=== PATIENT | male | born 1960 | race Two or more races ===

== ENCOUNTER 2024-07-24 09:36 | Outpatient (REF) | payer MEDICARE, SELFPAY | END 2024-07-24 09:37 | disposition home or self-care (01) | LOC: HO.HOSX 09:36 | PROVIDERS: PCP Nurse Practitioner Family; Visit Provider Physician Assistant | DX: M48.061 Spinal stenosis, lumbar region without neurogenic claudication (principal); M54.16 Radiculopathy, lumbar region | CPT/HCPCS: 72110; 99202 ==

== ENCOUNTER 2024-07-24 09:36 | Outpatient (AMB) | payer MEDICARE, MEDICAID, SELFPAY ==
--- NOTE | 2024-07-24 10:11 | A.SPINEOV_ITS ---
Intake Visit Reasons: Back & growing pain Intake Note: Mr. Oliver is here today c/o low back pain difficulty walking. Research Subject Required: No Assessment & Plan Assessment & Plan (1) Lumbar radiculopathy: Code(s): M54.16 - Radiculopathy, lumbar region Category: Medical Plan Dear PO Medel, Thank you for referring Tereso to our office today. He is a pleasant 63-year-old male who comes in today with a chief complaint of low back pain, difficulty with ambulation, and shooting pain into his right groin. He reports this has been ongoing since 2008 in his waxed and waned over the years as he attempted to deal treat it conservatively. His pain is now to the point where he feels he is severely restricted in his activities of daily living. He reports that he is unable to ambulate more than about 20-30 feet without experiencing severe shooting pain into his right groin. In addition to this he feels extremely tired after ambulating this distance and needs to sit down and rest in order to alleviate his pain. He reports that laying flat on his stomach helps to alleviate his symptoms. He states that ambulating exacerbates his symptoms. He states he had a cervical spine fusion roughly 1 year ago completed by Dr. Avila at [facility]. He does feel his upper extremity symptoms were treated successfully as a result of the surgery. He has tried physical therapy multiple times and found he always is unable to completed due to the increase in pain. He was attempting cortisone injections at [facility], reporting he only obtained fleeting relief. He is now to the point where he needs to take tramadol intermittently, and has exhausted [id number]-ekbkwol medications. When asked what his worst symptom is he says it is the shooting pain into his right groin and the lack of ability to walk. PMH: Tobacco use disorder, hyperlipidemia, anxiety, depression, vitamin-D deficiency, erectile dysfunction, COPD, MINNA, malignant neoplasm of prostate with resection, diverticulosis, prediabetes (last A1C 2018 was 6.0). Social hx: Patient smokes 1/2 pack per day, denies any substance use. Medications: Aspirin, atorvastatin, cholecalciferol, cyclobenzaprine, lidocaine, metformin, naproxen, omeprazole, MiraLax, senna, Viagra, albuterol, Flomax. Allergies: No known allergies. Physical exam: Tereso has what I would call 4/5 strength with bilateral knee extension, knee flexion, and hip flexion. These findings are predominantly pain limited. The rest of his upper and lower extremity strength is 5/5. He rises from a seated position with quite a bit of difficulty, and laid on his stomach for the duration of this encounter aside from when I asked him to sit upright for his examination. He denies any sensational issues. (-) Beltre's, (-) clonus, (-) bilateral straight leg raise. Imaging review: MRI of the lumbar spine completed at [place] on 05/30/2024 shows posterior disc bulging at L3-4 with moderate central canal and severe bilateral foraminal stenosis, worse on the left. There is again posterior disc bulging and severe bilateral foraminal stenosis at L4-5. There is also severe degenerative disc disease with loss of disc height at L5-S1 with a right-sided paracentral posterior disc bulge causing moderate bilateral foraminal stenosis at this level. Impression: Tereso is a pleasant 63-year-old male who comes in today with a chief complaint of low back pain, shooting pain into his right groin, and difficulties with ambulation. He reports that he has had these issues since 2008, and they have slowly worsened to the point where he is essentially unable to complete basic activities of daily living. He has attempted several forms of conservative treatment without significant symptom relief. He is now to the point where he feels something must be done in order to relieve his shooting pain and difficulties with ambulation. I believe he would be a good candidate for a lumbar decompression at L3-4, L4-5. It does not sound like the L5-S1 segment is very symptomatic as he is having no posterior radiculopathy, and feels his back pain is of lesser importance as his ambulation and radiculopathy at this time. Given that he does report significant symptom relief from lying flat on his stomach, therefore I would like to send the patient for a set of dynamic lumbar x-rays to ensure there is no instability. I will review this case with Dr. Christiansen later this week and call/update the patient thereafter. Thank you for allowing us to care for your patient. The total time spent with this visit with this patient was 45 minutes reviewing history, physical exam, MRI imaging review, and implementation of treatment plan or further diagnostic testing. Joey Christiansen MD,PhD [facility] Orders: Orders XR lumbar spine 4V min Today M48.061 - Spinal stenosis, lumbar region without neurogenic claudication Coding Level of Care Code New Pt Level 4 (51398) Diagnoses Lumbar radiculopathy M54.16
== END 2024-07-24 11:51 | disposition home or self-care (01) ==
PROVIDERS: PCP Nurse Practitioner Family; Referring Provider Nurse Practitioner Family; Visit Provider Physician Assistant
DX: M54.16 Radiculopathy, lumbar region (principal)
CPT/HCPCS: 99204

== ENCOUNTER 2025-01-12 10:52 | Outpatient (AMB) | payer MEDICARE, MEDICAID, SELFPAY ==
--- NOTE | 2025-01-12 11:53 | A.SPINEOV_ITS ---
Intake Visit Reasons: Discussed surgery 07/20 Intake Note: Mr. Oliver is here today to Discuss Surgery Financial Coordinator Required: No Assessment & Plan Assessment & Plan (1) Lumbar stenosis: Code(s): M48.061 - Spinal stenosis, lumbar region without neurogenic claudication Category: Medical Plan Dear colleague, On 01/12/2025, I saw Tereso Oliver. It main complaint today is acute left back pain that started 2 weeks ago after lifting. He denies significant pain radiating down his legs. He does feel a cold sensation in his legs when he walks. On exam, he is in agony when he gets up from the chair. Straight leg raise is negative. He wears a lumbar brace. His MRI shows spinal stenosis L3-4 and L4-5 but it is clinical presentation is not indicative of neurogenic claudication. Therefore I have not offered him any form of surgery. I advised him to call my office if the left-sided back pain d oes not resolve in a few weeks to schedule a new MRI. I spent 15 minutes in his consult for history physical and discussing plan of care. Eber Christiansen MD, PhD [facility] Trained Neurosurgeon Director, [facility] Coding Level of Care Code Est Pt Level 2 (19888) Diagnoses Lumbar stenosis M48.061
--- OUTSIDE RECORDS SUMMARY | 2025-01-12 11:58 | XMS_ITS | Clinical Summary ---
Author Organization [facility] Address [address] [place] [address] Care Team Providers Care Space Control Agent Name Role Phone Regina Medel [facility] Primary Care Provider Source Comments PLEASE NOTE, if this patient is a minor, it may be UNLAWFUL to discuss sensitive information that is contained in these records (such as FAMILY PLANNING, MENTAL HEALTH or SUBSTANCE ABUSE) with the minor patient's parent or other person without the patient's specific authorization.[facility] Allergies No known active allergies Medications miscellaneous medical supply miscIndications:E ssential hypertension,Othe r headache syndrome Order Automatic BP meter, Adult size, use daily. Need lifetime. 1 Each 11/04/19 22 Active miscellaneous medical supply miscIndications:C hronic bilateral low back pain with bilateral sciatica,Lumbar back pain with radiculopathy affecting right lower extremity Order lower back Brace/girdle. Use daily. Need lifetime. 1 Each 1 04/18/20 22 Active tamsulosin (FLOMAX) 0.4 mg 24 hr capsule Take 1 Capsule by mouth once daily Given by urology 30 Capsule 2 01/14/20 23 Active omeprazole (PRILOSEC) [address] capsule Take by mouth once daily with breakfast 02/17/20 24 Active sennosides (SENNA) 8.6 mg tablet TAKE 1 TABLET BY MOUTH EVERY DAY NEEDED CONSTIPATION 90 Tablet 2 04/12/20 24 Active polyethylene glycol, PEG, 3350 (GLYCOLAX) 17 gram/dose powderIndications :Slow transit constipation Take 17 g by mouth once daily For constipation 510 g 2 04/12/20 24 Active cyclobenzaprine (FLEXERIL) 10 mg tabletIndications :Lumbar radiculopathy, chronic Take 1 Tablet by mouth 3 (three) times daily as needed for muscle spasms 30 Tablet 1 07/14/20 24 Active traMADoL (ULTRAM) 50 mg tabletIndications :Lumbar back pain with radiculopathy affecting right lower extremity,DDD (degenerative disc disease), lumbar TAKE 1 TABLET BY MOUTH TWICE DAILY NEEDED FOR PAIN 30 Tablet 10/04/19 25 Active sildenafiL (VIAGRA) 100 mg tabletIndications :Erectile dysfunction, unspecified erectile dysfunction type Take 1 Tablet by mouth once daily as needed for erectile dysfunction 10 Tablet 1 10/10/19 25 Active albuterol HFA 90 mcg/actuation inhalerIndication s:Chronic obstructive pulmonary disease, unspecified COPD type ([facility]) INHALE 2 PUFFS INTO THE LUNGS EVERY 4 HOURS NEEDED FOR SHORTNESS OF BREATH OR WHEEZING 6.7 g 1 12/09/19 [address] tabletIndications :Lumbar radiculopathy, chronic Take 1 Tablet by mouth once daily 90 Tablet 3 12/09/19 25 Active atorvastatin (LIPITOR) 20 mg tablet Take 1 Tablet by mouth nightly at bedtime 90 Tablet 3 12/09/19 25 Active cholecalciferol, vitamin D3, 25 mcg (1,000 unit) capsule Take 1 Capsule by mouth once daily 90 Capsule 3 12/09/19 25 Active lidocaine (LIDODERM) 5 % patch Place 1 Patch onto the skin once daily (every 24 hours) 30 Patch 3 12/09/19 25 Active metFORMIN (GLUCOPHAGE) 500 mg tabletIndications :Prediabetes Take 1 Tablet by mouth 2 (two) times daily with a meal For prediabetes 180 Tablet 1 12/09/19 25 Active naproxen (NAPROSYN) 500 mg tablet Take 1 Tablet by mouth 2 (two) times daily as needed for other reason (pain) with meals 60 Tablet 2 12/09/19 25 Active Active Problems Problem Noted Date Diagnosed Date Prediabetes 04/18/2024 Slow transit constipation 01/13/2023 Neck pain with history of cervical spinal surger y 10/01/2022 Overview (01/13/2023): laminectomy on 10/01/2022. had C7-T1 decompression foraminotomies fixation, done at [facility] Malignant neoplasm of prostate ([facility]) 023 Overview (04/12/2024): 03/2024: prostrate cancer free per pt. Sees urology Diverticulosis 01/25/2022 Overview (04/12/2024): seen on colonosocopy MINNA (obstructive sleep apnea ): does not CPAP due to discomfort 08/22/2019 Overview (04/18/2022): refuses to wear any form of cpap mask. COPD (chronic obstructive pulmonary disease) ([facility]) 03/28/2019 Overview (03/28/2019): Noted on CXR 03/27/19 Cervical myelopathy and stenosis C5-T1 8 Overview (06/24/2022): 04/22/2022: [facility]: MRI of cervical: FINDINGS: Cervical vertebral body heights are maintained. Straightening of the normal cervical lordosis. 2--3 mm retrolisthesis of C3 over C4 and 5 mm anterolisthesis of C7 over T1. Loss of disc space height, anterior endplate ridging and endplate degenerative changes most pronounced at the C6-7 level. No evidence of focal cervical vertebral marrow signal abnormality within the cervical spine. The visualized portion of the craniocervical junction and posterior fossa are unremarkable as visualized Specific findings are identified the following levels: C2-C3: Posterior disc osteophyte complex asymmetric to left results in partial effacement of the ventral thecal sac. No evidence of disc herniation or central stenosis. Moderate left neuroforaminal narrowing due to facet and uncovertebral joint hypertrophy. C3-C4: Posterior disc osteophyte complex asymmetric to the left results in moderate central stenosis. Severe left and moderate-severe right neuroforaminal narrowing due to facet and uncovertebral joint hypertrophy. C4-C5: Posterior central disc osteophyte complex results in mild central stenosis and contacts the ventral spinal cord. Mild neuroforaminal narrowing bilaterally due to facet and uncovertebral joint hypertrophy C5-C6: Posterior disc osteophyte complex results in moderate central stenosis. Moderate-severe neuroforaminal narrowing bilaterally due to uncovertebral joint hypertrophy Focal myelomalacia changes within the dorsal aspect of the spinal cord at this level (axial image 20 of series 5) similar to the prior exam. C6-C7: Posterior disc osteophyte complex asymmetric to the right results in severe central stenosis. Severe neuroforaminal narrowing greater on the left than the right due to uncovertebral joint hypertrophy. Chronic myomalacia change within the cervical spine at this level are similar to the prior exam. C7-T1: No evidence of disc herniation or central stenosis. Severe left and moderate right neuroforaminal narrowing due to facet hypertrophy IMPRESSION: Multilevel degenerative disc/facet disease and spondylolisthesis within the cervical spine as described above in detail resulting in multilevel spinal canal and neuroforaminal stenoses Chronic encephalomalacia changes within the cervical spinal cord at the C5-6 and C6-7 levels similar to the prior exam No evidence of interval disc herniation within the cervical spine 02/03/2019: [facility]: MRI of cervical: FINDINGS: Comparison made with previous cervical spine MRI 2017. Multilevel degenerative changes redemonstrated. Osteophyte disc complexes deform thecal sac at multiple levels. Anterolisthesis C7 referable to T1 persists, 6.3 mm forward slippage, similar to that shown previously. Additional 4.3 mm anterolisthesis C4 referable to C3 also present previously. Focal narrowings of central canal, maximal C6-7 level with intramedullary signal alteration midline to right paramedian mid to posterior cord suggesting myelomalacia, similar extent previously. Smaller area of left-sided intramedullary signal change. C1-C2: Normal appearance to atlantoaxial joint. Normal alignment. No central stenosis. C2-C3: Mild smooth deformation of thecal sac by osteophyte disc complex. No central stenosis. Mild to moderate left foraminal stenosis. No right foraminal stenosis. C3-C4: Deformation of thecal sac by osteophyte disc complex situated by malalignment between C3-C4 moderately narrowing central canal. Mild contact with the cord with mild cord flattening similar to that shown previously moderate bilateral foraminal stenosis, left greater than right. C4-C5: Midline disc herniation deforms thecal sac without cord compression. Mild bilateral foraminal stenosis. C5-C6: Mild deformation of thecal sac by osteophyte disc complex without encroachment upon the cord. Moderate bilateral foraminal stenosis, right greater than left. C6-C7: Deformation of thecal sac by osteophyte disc complex focally contacting the cord with intramedullary signal change, right greater than left. Bilateral moderate to marked foraminal stenosis. C7-T1: Forward slippage of C7 referable to T1 represents a chronic finding. Mild smooth deformation of thecal sac by osteophyte disc complex without cord compression. Moderate bilateral foraminal stenosis, left greater than right. IMPRESSION: 1. Multilevel spondylitic changes with alignment abnormalities C3-4 and C7-T1 levels contributing to narrowing central canal and neural foramen, similar to that shown previously. 2. Central stenosis most notable C3-C4 and C6-C7 levels with intramedullary signal changes C6-7 level suggesting myelomalacia. 3. Greatest foraminal stenoses mid to caudal cervical spine as noted. Xray 10/29/17 [facility] cervical spine shows mild degen changes and cervical spondylolisthesis, osseous neuroforaminal encroachment right greater than left. MRI of cervical spine 11/22/17 at [facility] shows multilevel degenerative changes most severe at C5-T1 levels with central canal stenosis, multilevel neural foraminal narrowing with focal myelomalacia in the posterior spinal cord at C5-C6 and C6- C7. 01/05/18 Eval at [facility], Dr Rosen. Recommends 3-level anterior cervical discectomy C5-C6, C6-C7, and C7-T1. Pt declines surgery. Erectile dysfunction 10/01/2016 Chronic right-sided lumbar radiculopathy 016 Overview (06/06/2024): 05/31/2024: [facility]: Mri of lumbar: FINDINGS: Bones: Normal marrow signal is noted. Cord: The cord appears within normal limits. Normal signal is noted. There is a slight irregular course of the posterior nerve roots at the L4-5 level could represent sequela of arachnoiditis. Facets: Degenerative changes of the facets are noted. Soft tissues: Visible soft tissues appear within normal limits Lumbar Spine Levels: L1-L2: Minimal degenerative disc bulge and degenerative changes of facets without significant spinal canal stenosis. Findings cause mild bilateral foraminal stenosis. L2-L3: Degenerative disc bulge is slightly asymmetric in the right foraminal position. Mild degenerative changes of the posterior facets. Findings cause minimal spinal canal stenosis. There is asymmetric effacement of the right lateral recess that may exert mass effect on the budding right L3 nerve root. Degenerative changes cause moderate right-sided and mild left-sided foraminal stenosis. L3-L4: Degenerative disc bulge and degenerative changes of the posterior facets with moderate spinal canal stenosis. Degenerative changes contribute to moderate bilateral foraminal stenosis. L4-L5: Degenerative disc bulge and hypertrophic degenerative changes of the posterior facets with mild spinal canal stenosis. There is asymmetric effacement the left lateral recess may exert mass effect on the budding left L5 nerve root. Findings contribute to moderate bilateral foraminal stenosis. L5-S1: Degenerative disc bulge and minimal degenerative changes of the posterior facets with only minimal spinal canal stenosis. There is asymmetric effacement of the right lateral recess may exert mass effect on the budding right S1 nerve root. Degenerative changes cause moderate bilateral foraminal stenosis. IMPRESSION: Multilevel degenerative changes are noted and are detailed fully above. 10/12/2021: [facility]: Mri of lumbar: IMPRESSION: 1. Multilevel degenerative changes narrowing central canal and neural foramen, mildly progressive from that shown 2017. 2. Central stenoses as noted. Crowding of nerve roots of cauda equina most notable L2-L3, L3-L4 and L4-L5, without complete effacement of CSF signal. 3. Foraminal stenoses with focal contact between disc and foraminal nerve roots, without effacement of surrounding fat signal. 2017:: [facility]: MRI of lumbar: IMPRESSION: Multilevel degenerative changes with posterior disc bulge herniation complexes and facet arthritic changes with neural foraminal narrowing increased at the L5-S1 levels as above. No significant canal stenosis. F/u [facility] s/p left L5 and right S1 transforaminal epidural injections 07/29/[address] Herrera 10/11/17 F/u [facility]. Dx: DDD R hip, give hip injection, f/u 3 weeks. C/o upper and lower back pain, failed trial of venlafaxin, continue topamax Xray lumbar spine 10/29/17 at [facility] shows DDD, mild disc level degenerative changes at L3-L4 level MRI lumbar spine 11/22/17 shows multilevel degernative changes with posterior disc bulge herniation complexes and facet arthritic changes with neural foraminal narrowing increased at the L5-S1 levels. 08-29-18 - continue topamax, see psych for panic attacks, f/u in one month. Vitamin D insufficiency 01/29/2016 Arthropathy of right hip 01/23/2016 Overview (01/23/2016): MRI right hip 11/19/09 = tears identified involving anterior labrum and superolateral labrum with possible small paralabral cyst along inferior aspect acetabulum. Tobacco abuse disorder 01/23/2016 Hyperlipidemia LDL goal <100 01/23/2016 Overview (07/15/2017): 10 year ASCVD risk = 10% Anxiety and depression 01/23/2016 Resolved Problems Problem Noted Date Diagnosed Date Resolved Date Current moderate episode of major depressive disorder without prior episode ([facility]) 01/13/2023 03/24/2023 Right cervical radiculopathy 01/23/2016 03/15/2018 Encounters Date Type Department Care Team Description 12/08/2024 Interim Notes [address] [id number] Jennifer Warren FNP Chronic obstructive pulmonary disease, unspecified COPD type ([facility]); Lumbar radiculopathy, chronic; Prediabetes; Erectile dysfunction, unspecified erectile dysfunction type from Last 3 Months Immunizations Immunization Administration Dates Next Due Flu, Preservative Free 02/02/2022,10/03/2020 INFLUENZA, SEASONAL, INJECTABLE 10/01/2016 Influenza (FLUBLOK),recombinant,injectable,preservative Free 07/14/2024 PNEUMOCOCCAL CONJUGATE PCV 20 (Prevnar) 07/14/20 24 PNEUMOCOCCAL POLYSACCHARIDE PPV23 04/28/2019 Pfizer COVID vaccine, COMIRNATY, edgar cap, 12+ 1 11/16/2021,08/05/2022 Pfizer COVID-19 (Comirnaty), Mrna, Lnp-s, Pf, Gregorio-sucrose, 30 Mcg/0.3 Ml, 12yr+ 07/14/2024 Pfizer-BioNTech COVID-19 Vac cine Bivalent, (EDGAR PFIZER-BIONTECH COVID-19 VACCINE BIVALENT, (EDGAR CAP 01/13/2023 TDAP 04/28/2019 ZOSTER VACCINE, RECOMBINANT (SHINGRIX) 9,05/02/2019 Family History Medical History Relation Name Comments Diabetes Father Cancer Mother Depression Sister Relation Name Status Comments Brother HIV Father Mother uterine caner Sister Alive Social History Tobacco Use Types Packs/Day Years Used Date Smoking Tobacco: Every Day Cigarettes 1 40 Started: 01/22/1977; Last attempted to quit: 08/24/2015 Smokeless Tobacco: Never Tobacco Cessation:Ready to Q uit: No; Counseling Given: Yes Comments:Quit 2018. Smoked 1 ppd since 16 y/o. Started smoking from 12/12/2023,2-3 cigs per day Alcohol Use Standard Drinks/Week Comments No 0 (1 standard drink = 0.6 oz pur e alcohol) Social Connections Answer Date Recorded Connectedness 0 05/30/2024 Financial Resource Strain Answer Date R ecorded Financial Resource Strain 0 2019 Stress Answer Date Recorded Stress 0 04/18/2020 Physical Activity Answer Date Recorded Physical Activity 0 05/17/2019 Food Insecurity Answer Date Recorded Food 0 06/22/2024 Transportation Needs Answer Date Record ed Transportation 0 04/18/2020 Housing Stability Answer Date Recorded Housing 0 04/18/2020 Safety and Environment Answer Date Jose rded Safety 0 04/18/2020 Utilities Answer Date Recorded Utilities 0 05/17/2019 Employment Answer Date Recorded Stress 0 04/18/2020 Sex and Gender Information Value Date Recorded Sex Assigned at Male 07/15/2017 4:43 PM PDT Legal Sex Male 8:12 AM PST Gender Identity Male 07/15/2017 4:43 PM PDT Sexual Orientation Straight 07/15/2017 4: 43 PM PDT Occupation Industry Job Start Date Job End Date HISTORY WORKING [employer], UNEMPLOYED SINCE 2008 Not on file Not on file Not on file Last Filed Vital Signs Vital Sign Reading Time Taken Comments Blood Pressure 110/62 07/14/2024 9:21 AM EDT Pulse 74 07/14/2024 9:21 AM EDT Temperature 36.8 ??C (98.3 ??F) 07/14/2024 9:21 AM ED T Respiratory Rate 18 07/14/2024 9:21 AM EDT Oxygen Saturation 99% 07/14/2024 9:21 AM EDT Inhaled Oxygen Concentration - - Weight 90.8 kg (200 lb 1.6 oz) 07/14/2024 9:21 A M EDT Height 180.3 cm (5' 11 ) 04/12/2024 2:07 PM EDT Body Mass Index 27.91 04/12/2024 2:07 PM EDT Plan of Treatment Upcoming Encounters Date Type Department Care Team (Late st Contact Info) Description 01/18/2025 1:20 PM EDT Office Visit [facility] [address] [place] [id number] Mariah Das, [facility] [address] [place] [address] Health Maintenance Due Date Last Done Comments Anxiety Screening 1962 Dental Perio Charting [address] Colonography 2007 Fecal DNA 2007 Flexible Sigmoidoscopy 2007 FIT/gFOBT 05/04/2020 05/04/2019 Dental BW 05/28/2024 05/26/2023 Dental Examination 05/28/2024 05/26/2023 Depression Monitoring 07/13/2024 04/12/2024 , 01/13/2023, 04/17/2022, Additional history exists Alcohol and Drug Screen 09/27/2024 04/12/20 24, 01/13/2023, 04/17/2022, Additional history exists Medicare Annual Wellness Visit 04/12/2025 0 04/12/2024, 01/13/2023, 04/28/2019, Additional history exists Tobacco Cessation Counseling (#1) 04/12/2025 Diabetes Screening 04/13/2025 04/13/2024, 0 04/13/2024, 01/13/2023, Additional history exists Lipid Screening 04/13/2025 04/13/2024, 12/26, 04/17/2022, Additional history exists Hypertension Screening (#1) 07/14/2025 Lung Cancer Screening 11/17/2025 11/17/2024 , 11/10/2024, 04/19/2024, Additional history exists Dental FMX/Pano 05/28/2028 05/26/2023 Imm-DTaP/Tdap/Td (2 - Td or Tdap) 04/28/2029 019, 04/28/2019 Colonoscopy 02/10/2032 02/09/2022 Colorectal Cancer Screening 02/10/2032 HIV Screening Completed 04/28/2019 Hepatitis C Screening Completed 04/28/2019 Imm-Zoster, Recombinant Completed 07/07/2019, 05/02 Hoa-[id number]-22 Completed 07/14/2024, 12/26, 09/15/2022, Additional history exists Imm-Influenza Completed 07/14/2024, 050 05/2022, 10/03/2020, Additional history exists Imm-Pneumococcal Completed 07/14/2024, 04/28/2019 Procedures Procedure Name Priority Date/Time Associated Diagnosis Comments LUNG CANCER SCREENING (LOW DOSE CT OF CHEST) SCANNED DOCUMENT 11/17/2024 3:00 AM EST LUNG CANCER SCREENING (LOW DOSE CT OF CHEST) SCANNED DOCUMENT 11/10/2024 3:00 AM EST HGBA1C W/MPG Routine 04/13/2024 8:41 AM EDT Routine general medical examination at a health care facility LIPID PANEL Routine 04/13/2024 8:41 AM EDT Routine general medical examination at a health care facility INTRAORAL - COMP SERIES OF RADIOGRAPHIC IMAGES Routine 05/26/2023 11:00 AM EDT Encounter for dental examination COMP ORAL EVALUATION - NEW/ESTABLISHED PATIENT Routine 05/26/2023 11:00 AM EDT Encounter for dental examination HISTORIC COLONOSCOPY 02/09/2022 3:00 AM EDT FECAL OCCULT BLOOD HEMOCCULT X3, LORENE LEONIE (POCT) Routine 05/04/2019 3:37 PM EDT Routine general medical examination at a [facility] care facility ANTIBODY HIV-1&HIV-2 SINGLE RESULT Routine 04/28/2019 9:30 AM EDT Routine general medical examination at a [facility] care facility HEPATITIS C ANTIBODY Routine 04/28/2019 9:30 AM EDT Routine general medical examination at a [facility] care facility from Last 3 Months or Most Recently Relevant to Health Maintenance Results * LUNG CANCER SCREENING (LOW DOSE CT OF CHEST) SCANNED DOCUMENT (11/17/2024 3:00 AM EST) Only the most recent of2 resultswithin the time period is included. 11/17/2024 3:00 AM EST Regina Guwilfridodev [employer] [facility] Final Result * (ABNORMAL) HGBA1C W/MPG (04/13/2024 8:41 AM EDT) HEMOGLOBIN A1C 6.0(H) <5.7 % of total Hgb [facility] Comment: For someone without known diabetes, a hemoglobin A1c value between 5.7% and 6.4% is consistent with prediabetes and should be confirmed with a follow-up test. For someone with known diabetes, a value <7% indicates that their diabetes is well controlled. A1c targets should be individualized based on duration of diabetes, age, comorbid conditions, and other considerations. This assay result is consistent with an increased risk of diabetes. Currently, no consensus exists regarding use of hemoglobin A1c for diagnosis of diabetes for children. MEAN PLASMA GLUCOSE 136 mg/dL (calc) [facility]) Blood Blood / Unknown 04/13/2024 8 :41 AM EDT 04/13/2024 8:42 AM EDT Narrative [facility] - 04/14/2024 6:24 AM EDT FASTING:YES us Samanoashutosh Medel [facility] - BLOOD DRAW Edited Result - Final Performing Organization Address City/[facility]/ZIP Co de Phone Number [employer] [facility] [address] [address], [employer] [address] [phone] * LIPID PANEL (04/13/2024 8:41 AM EDT) CHOLESTEROL, TOTAL 130 <200 mg/dL [employer] [facility] HDL CHOLESTEROL 42 > OR = 40 mg/dL [employer] [facility] TRIGLYCERIDES 64 <150 mg/dL [employer] [facility] LDL-CHOLESTEROL 74 99 mg/dL (calc) [employer] [facility] Comment: Reference range: <100 Desirable range <100 mg/dL for primary prevention; ?? <70 mg/dL for patients with CHD or diabetic patients with > or = 2 CHD risk factors. LDL-C is now calculated using the Cata calculation, which is a validated novel method providing better accuracy than the Friedewald equation in the estimation of LDL-C. Tyson REHMAN et al. ROBERTO. 2013;310(19): 8612-7468 (http://education.[employer]/faq/CCF743) CHOL/HDLC RATIO 3.1 <5.0 (calc) [employer] [facility] NON-HDL CHOLESTEROL 88 <130 mg/dL (calc) [employer] [facility] Comment: For patients with diabetes plus 1 major ASCVD risk factor, treating to a non-HDL-C goal of <100 mg/dL (LDL-C of <70 mg/dL) is considered a therapeutic option. Blood Blood / Unknown 04/13/2024 8 :41 AM EDT 04/13/2024 8:42 AM EDT Narrative [facility] - 04/14/2024 6:24 AM EDT FASTING:YES Regina [facility] - BLOOD DRAW Final Result Performing Organization Address City/[facility]/ZIP Co de Phone Number [employer] [facility] [address] [address], [employer] [address] [phone] * HISTORIC COLONOSCOPY (02/09/2022 3:00 AM EDT) 02/09/2022 3:00 AM EDT Regina Ameyastephani [facility] PROCEDURES Edited Result - Final * FECAL OCCULT BLOOD HEMOCCULT X3, LORENE LEONIE (POCT) (05/04/2019 3:37 PM EDT) FECAL OCCULT BLOOD NEGATIVE NEGATIVE [facility] PO[facility] FECAL OCCULT BLOOD #2 NEGATIVE NEGATIVE [facility] FECAL OCCULT BLOOD #3 NEGATIVE NEGATIVE [facility] Stool specimen (specimen) Stool specimen / Unknown 05/04/2019 3:37 PM EDT [facility] Ameyastephani [facility] - BLOOD DRAW Final Result [facility] POCT * HEPATITIS C ANTIBODY (04/28/2019 9:30 AM EDT) HEPATITIS C VIRUS SCREEN NEGATIVE NEGATIVE [facility] Blood specimen (specimen) Blood / Unknown 04/28/2019 9:30 AM EDT 04/28/2019 9:[address] [facility] - 04/28/2019 2:27 PM EDT [employer] [address] Community [facility] Navigator - Selina Camarillo MD PT ID [id number] ORD# [id number] [facility] - [place] [address], * HIV-1 & HIV-2 ANTIBODIES (04/28/2019 9:30 AM EDT) HIV 1 AND 2 ANTIBODY SCREEN NEGATIVE NEGATIVE [facility] Comment: This assay is a 4th generation assay allowing for earlier detection of HIV infection by detecting the presence of the HIV-1 p24 antigen as well as the traditional antibodies to HIV type 1 (including group O) and type 2. ??Use of a 4th generation assay is the current CDC recommendation for HIV screening. Blood specimen (specimen) Blood / Unknown 04/28/2019 9:30 AM EDT 04/28/2019 9:38 AM EDT [facility] [facility] - 04/28/2019 2:27 PM EDT [employer], [place] [address] Community Health Navigator - Selina Camarillo MD PT ID [id number] ORD# [id number] Regina Houstephani CLUSTER BORE OPERATOR [facility] - BLOOD DRAW Final Result [address] [address], from Last 3 Months or Most Recently Relevant to Health Maintenance [place] Care Teams Space Control Agent Relationship Specialty Start Date End Date Regina Medel FNP [address] [place] [id number] PCP - General Internal Medicine 04/10/19
--- OUTSIDE RECORDS SUMMARY | 2025-01-12 11:58 | XMS_ITS | Clinical Summary ---
Author Organization [email or web address] it Address [address] [place] [address] Care Team Providers Care Granular Operator Name Role Phone Regina Medel NP Primary Care Provider Medical History Medical History Date Comments Essential hypertension DX:Essent ial hypertension Anxiety state DX:Anxiety state Depressive disorder DX:Depressiv e disorder Esophageal reflux DX:Esophageal reflux Social History Tobacco Use Types Packs/Day Years Used Date Smoking Tobacco: Former Smokeless Tobacco: Never Sex and Gender Information Value Date Recorded Sex Assigned at Not on file Legal Sex Male 3:40 PM EST Gender Identity Not on file Sexual Orientation Not on file Obstetrics History Last Filed Vital Signs Vital Sign Reading Time Taken Comments Blood Pressure - - Pulse - - Temperature - - Respiratory Rate - - Oxygen Saturation - - Inhaled Oxygen Concentration - - Weight 99.8 kg (220 lb) 11/27/2022 10:28 AM EST Height 180.3 cm (5' 11 ) 10/15/2022 1:50 PM EST Body Mass Index 30.68 10/15/2022 1:50 PM EST Plan of Treatment Health Maintenance Due Date Last Done Comments Pneumococcal Vaccine: 50+ Years (2 of 2 - PCV) 04/28/2020 04/28/2019 Cholesterol Screening (Lipid Panel) 09/09/2022 Colorectal Cancer Screening: Colonoscopy 09/09/2022 Depression Screening 09/09/2022 HIV Screening 09/09/2022 Hepatitis C Screening 09/09/2022 Social Influencers of Health Screening 09/09/2022 COVID-19 Vaccine (2023-2 5 season) 2024 Influenza Vaccine (Season Ended) 2025 02/02/2022, 10/03/2020, 10/01/2016 DTaP,Tdap,and Td Vaccines (2 - Td or Tdap) 04/28/2029 04/28/2019 RSV Immunization Adult Patients (1 - 1-dose 75+ series) 2037 Pneumococcal Vaccine: Pediatrics (0 to 5 Years) and At-Risk Patients (6 to 64 Years) Aged Out 04/28/2019 No longer eligible b ased on patient's age to complete this topic Zoster Vaccines Completed 07/07/2019, 05/02/2019 HIB Vaccines Aged Out No longer eligi ble based on patient's age to complete this topic HPV Vaccines Aged Out No longer eligi ble based on patient's age to complete this topic Hepatitis A Vaccines Aged Out No long er eligible based on patient's age to complete this topic Hepatitis B Vaccines Aged Out No long er eligible based on patient's age to complete this topic IPV Vaccines Aged Out No longer eligi ble based on patient's age to complete this topic MMR Vaccines Aged Out No longer eligi ble based on patient's age to complete this topic Meningococcal ACWY Vaccine Aged Out N o longer eligible based on patient's age to complete this topic Meningococcal B Vaccine Aged Out No l onger eligible based on patient's age to complete this topic RSV Immunization Patients Under 20 months Aged Out No longer eligible b ased on patient's age to complete this topic Varicella Vaccines Aged Out No longer eligible based on patient's age to complete this topic Care Teams Granular Operator Relationship Specialty Start Date End Date Regina Medel NP [address] [place] [id number] PCP - General 07/21/22
== END 2025-01-12 12:14 | disposition home or self-care (01) ==
LOC: HO.HNS 10:53
PROVIDERS: PCP Nurse Practitioner Family; Visit Provider Neurological Surgery
DX: M48.061 Spinal stenosis, lumbar region without neurogenic claudication (principal)
CPT/HCPCS: 99212

== ENCOUNTER → 2025-01-12 10:52 | Outpatient (BNVA) | payer MEDICARE, SELFPAY | PROVIDERS: PCP Nurse Practitioner Family; Visit Provider Neurological Surgery | DX: M48.061 Spinal stenosis, lumbar region without neurogenic claudication (principal) | CPT/HCPCS: 99212 ==

== ENCOUNTER 2025-04-25 13:00 | Outpatient (AMB) | payer MEDICARE, MEDICAID, SELFPAY ==
--- NOTE | 2025-04-25 13:22 | A.SPINEOV_ITS ---
Intake Visit Reasons: back pain/? surgery Intake Note: Mr. Oliver is here today c/o Left sided back pain. Country Printer Apprentice Required: No Allergies No Known Allergies Allergy (Verified 04/25/25 13:37) Assessment & Plan Assessment & Plan (1) Leg weakness, bilateral: Code(s): R29.898 - Other symptoms and signs involving the musculoskeletal system Category: Medical (2) Lumbar stenosis: Code(s): M48.061 - Spinal stenosis, lumbar region without neurogenic claudication Category: Medical Qualifiers: Neurogenic claudication status: without neurogenic claudication Qualified Code(s): M48.061 - Spinal stenosis, lumbar region without neurogenic claudication Plan Dear colleague, On 04/25/2025, I saw for follow-up Tereso Oliver. He continues to suffering from back pain although it has somewhat improved. He developed a new issue which is weakness of his both legs with the right side is more affected than the left side. In addition to the weakness he has balance problems and right-sided neck pain that radiates to his right shoulder. The weakness has been going on for a month and is progressive. He has difficulty going up stairs due to the weakness and when he walks he looks drunk. He notices tingling under his feet. On exam, he has difficulty getting out of chair due to proximal leg weakness. On inspection of the hands there is mild muscle wasting. Individual motor testing showsa grade 3/5 weakness of the bilateral iliopsoas. Has a grade 4/5 weakness of the quadriceps and dorsiflexion on the right side. No sensory level. There is a asymmetry of the reflexes were the lower extremities are more brisk than the upper extremities. No pathological reflexes. This patient developed progressive bilateral leg weakness. I am going to order an MRI of the cervical spine and thoracic spine for the symptoms. I will also repeat the MRI of the lumbar spine due to the persisting back pain. I will follow-up with him after the studies are performed. I spent 25 minutes in his consult for exam and discussing plan of care. Orders: Orders MR cervical spine wo con Today R29.898 - Other symptoms and signs involving the musculoskeletal system MR thoracic spine wo con Today R29.898 - Other symptoms and signs involving the musculoskeletal system MR lumbar spine wo con Today M48.061 - Spinal stenosis, lumbar region without neurogenic claudication Coding Level of Care Code Est Pt Level 3 (35792) Diagnoses Leg weakness, bilateral R29.898 Spinal stenosis of lumbar region without neurogenic claudication M48.061 Neurogenic claudication status: without neurogenic claudication
--- OUTSIDE RECORDS SUMMARY | 2025-04-25 13:35 | XMS_ITS | Clinical Summary ---
Author Organization [facility] Address [address] [place] [address] Care Team Providers Care High [employer] Teacher Name Role Phone Regina Medel [facility] Primary Care Provider [phone] Source Comments PLEASE NOTE, if this patient [...] spasms 30 Tablet 1 07/14/20 24 Active albuterol HFA 90 mcg/actuation inhalerIndication s:Chronic obstructive pulmonary disease, unspecified COPD type ([facility]) INHALE 2 PUFFS INTO THE LUNGS EVERY [...] meals 60 Tablet 2 12/09/19 25 Active nicotine (NICODERM, STEP 1) 21 mg/24 hr patchIndications: Encounter for smoking cessation counseling Place 1 Patch onto the skin once daily (every 24 hours) 28 Patch 4 01/19/20 25 Active carbamide peroxide (DEBROX) 6.5 % otic solutionIndicatio ns:Left ear impacted cerumen Place 10 Drops into both ears 2 (two) times daily 15 mL 01/19/20 25 Active cyproheptadine (PERIACTIN) 4 mg tabletIndications :Decreased appetite Take 1 Tablet by mouth daily 90 Tablet 01/19/20 25 Active nicotine, polacrilex, (NICORETTE) 4 mg gumIndications:En counter for smoking cessation counseling Take 1 Each by mouth every 2 (two) hours as needed for smoking cessation 110 Each 2 01/19/20 25 Active ferrous sulfate 325 mg (65 mg iron) tabletIndications :Iron deficiency Take 1 Tablet by mouth once daily with breakfast 90 Tablet 01/25/20 25 Active traMADoL (ULTRAM) 50 mg tabletIndications :Lumbar back pain with radiculopathy affecting right lower extremity,DDD (degenerative disc disease), lumbar TAKE 1 TABLET BY MOUTH TWICE DAILY NEEDED FOR PAIN. 30 Tablet 03/08/20 25 Active sildenafiL (VIAGRA) 100 mg tabletIndications :Erectile dysfunction, unspecified erectile dysfunction type Take 1 Tablet by mouth once daily as needed for erectile dysfunction. 10 Tablet 1 03/08/20 25 Active Hospital, Clinic, or Other Facility Administered Medication Ordered Dose Route Frequency Start Date End Date Status ketorolac (Toradol) injection 30 mgIndications:Lumbar back pain with radiculopathy affecting right lower extremity 30 mg IM Once 04/20/2025 04/20/2025 Ended Active Problems Problem Noted Date Diagnosed Date Prediabetes 04/18/2024 Slow transit constipation 01/13/2023 Neck pain with history of cervical spinal surger y 10/01/2022 Overview (01/13/2023): laminectomy on 10/01/2022. had C7-T1 decompression foraminotomies fixation, done at [facility] Malignant neoplasm of prostate ([facility]) 0 09/27/2022 Overview (04/12/2024): 03/2024: prostrate cancer free per pt. Sees urology Diverticulosis 01/25/2022 Overview (04/12/2024): seen on colonosocopy MINNA (obstructive sleep apnea ): does not CPAP due to discomfort 08/22/2019 Overview (04/18/2022): refuses to wear any form of cpap mask. COPD (chronic obstructive pu lmonary disease) ([facility]) 03/28/2019 Overview (03/28/2019): Noted on CXR [...] caudal cervical spine as noted. Xray 10/29/17 [facility] cervical spine shows mild degen changes and cervical spondylolisthesis, osseous neuroforaminal encroachment right greater than left. MRI of cervical spine 11/22/17 at [facility] shows multilevel degenerative changes most severe at C5-T1 levels with central canal stenosis, multilevel neural foraminal narrowing with focal myelomalacia in the posterior spinal cord at C5-C6 and C6- C7. 01/05/18 Eval at [facility], Dr Rosen. Recommends 3-level anterior [...] continue topamax Xray lumbar spine 10/29/17 at [facility] shows DDD, mild disc level degenerative changes [...] of major depressive disorder without prior episode ([facility]) 01/13/2023 03/24/2023 Right cervical radiculopathy 01/23/2016 03/15/2018 Encounters Date Type Department Care Team Description 04/24/2025 Results Follow-Up [address] [address] Susi Leonard FNP 04/20/2025 9:40 AM EDT Office Visit [address] [address] Susi Leonard FNP 01/26/2025 10:40 AM EDT Office Visit [address] [address] Romelia Moser RN from Last 3 Months Immunizations Immunization Administration Dates Next Due Flu, Preservative Free 02/02/2022,10/03/2020 INFLUENZA, SEASONAL, INJECTABLE 10/01/2016 Influenza (FLUBLOK),recombinant,injectable,preservative Free 07/14/2024 PNEUMOCOCCAL CONJUGATE PCV 20 (Prevnar 20) 07/14 PNEUMOCOCCAL POLYSACCHARIDE PPV23 (Pneumovax 23) 04/28/2019 Pfizer COVID vaccine, COMREINALDO, edgar cap, 12+ 1 11/16/2021,08/05/2022 Pfizer COVID-19 [...] Tobacco: Never Tobacco Cessation:Ready to Q uit: Not Asked; Counseling Given: Not Answered Comments:Quit 2018. Smoked 1 ppd since 14 [...] Date Job End Date HISTORY WORKING [employer], UNEMPLOYED SINCE 2008 Not on file Not on file Not on file Last Filed Vital Signs Vital Sign Reading Time Taken Comments Blood Pressure 136/72 04/20/2025 9:20 AM EDT Pulse 77 04/20/2025 9:20 AM EDT Temperature 36.8 C (98.3 F) 04/20/2025 9:20 AM EDT Respiratory Rate 16 04/20/2025 9:20 AM EDT Oxygen Saturation 98% 04/20/2025 9:20 AM EDT Inhaled Oxygen Concentration - - Weight 83.5 kg (184 lb) 04/20/2025 9:20 AM EDT Height 180.3 cm (5' 11 ) 04/20/2025 9:20 AM EDT Body Mass Index 25.66 04/20/2025 9:20 AM EDT Plan of Treatment Health Maintenance Due Date Last Done Comments Dental Perio Charting [address] Colonography 2007 Fecal DNA 2007 Flexible Sigmoidoscopy 2007 FIT/gFOBT 05/04/2020 05/04/2019 Urine Drug Screen 01/14/2024 01/13/2023 Dental BW 05/28/2024 05/26/2023 Medicare Annual Wellness Visit 04/12/2025 04/12/2024 Imm-Influenza (#1) 2025 07/14/2024, 0 02/02/2022, 10/03/2020, Additional history exists Depression Monitoring 07/21/2025 04/20/2025 , 04/12/2024, 01/13/2023, Additional history exists Lung Cancer Screening 11/17/2025 11/17/2024 , 11/10/2024, 04/19/2024, Additional history exists Lipid Screening 01/18/2026 01/18/2025, 03/27, 01/13/2023, Additional history exists Tobacco Cessation Counseling (#1) 01/18/2026 Dental Examination 01/20/2026 01/18/2025, 05/26/2023 Anxiety Screening 04/20/2026 04/20/2025 Diabetes Screening 04/20/2026 04/20/2025, 0 04/20/2025, 01/18/2025, Additional history exists Hypertension Screening (#1) 04/20/2026 Dental FMX/Pano 05/28/2028 05/26/2023 Imm-DTaP/Tdap/Td (2 - Td or Tdap) 04/28/2029 019, 04/28/2019 Colonoscopy 04/11/2035 04/11/2025, 03/27, 02/09/2022 Colorectal Cancer Screening 04/11/2035 HIV Screening Completed 04/28/2019 Hepatitis C Screening Completed 04/28/2019 Imm-Zoster, Recombinant Completed 07/07/2019, 05/02 [id number] Completed 07/14/2024, 12/26, 09/15/2022, Additional history exists Imm-Pneumococcal 50+ Completed 07/14/2024, 04/28/20 Alcohol and Drug Screen Completed 04/20/20, 04/12/2024, 01/13/2023, Additional history exists Procedures Procedure Name Priority Date/Time Associated Diagnosis Comments HGA1C W/EAG Routine 04/20/2025 9:53 AM EDT Prediabetes COMPREHENSIVE METABOLIC PANEL Routine 04/20/2025 9:53 AM EDT Prediabetes OTHER ORDERS SCANNED DOCUMENT 04/20/2025 3:00 AM EDT HISTORIC COLONOSCOPY 04/11/2025 3:00 AM EDT HISTORIC COLONOSCOPY 04/10/2025 3:00 AM EDT REFERRAL SCANNED DOCUMENT 02/28/2025 3:00 AM EDT REFERRAL SCANNED DOCUMENT 02/12/2025 3:00 AM EDT OTHER ORDERS SCANNED DOCUMENT 01/31/2025 3:00 AM EDT HC REMOVAL IMPACTED CERUMEN IRRIGATION/LVG UNILAT Routine 01/26/2025 10:00 AM EDT Left ear impacted cerumen REMOVAL IMPACTED CERUMEN IRRIGATION/LVG UNILAT Routine 01/26/2025 10:00 AM EDT Left ear impacted cerumen IMAGING SCANNED DOCUMENT 01/26/2025 3:00 AM EDT LIPID PANEL Routine 01/18/2025 2:31 PM EDT Prediabetes Hyperlipidemia LDL goal <100 LUNG CANCER SCREENING (LOW DOSE CT OF CHEST) SCANNED DOCUMENT 11/17/2024 3:00 AM EST INTRAORAL - COMP SERIES OF RADIOGRAPHIC IMAGES Routine 05/26/2023 11:00 AM EDT Encounter for dental examination COMP ORAL EVALUATION - NEW/ESTABLISHED PATIENT Routine 05/26/2023 11:00 AM EDT Encounter for dental examination DRUG MONITORING, PANEL 8 WITH CONFIRMATION, URINE Routine 01/13/2023 9:37 AM EDT Chronic lumbar radiculopathy Need for vaccination Routine general medical examination at a health care facility Slow transit constipation FECAL OCCULT BLOOD HEMOCCULT X3, LORENE LEONIE (POCT) Routine 05/04/2019 3:37 PM EDT Routine general medical examination at a [facility] ANTIBODY HIV-1&HIV-2 SINGLE RESULT Routine 04/28/2019 9:30 AM EDT Routine general medical examination at a [facility] facility HEPATITIS C ANTIBODY Routine 04/28/2019 9:30 AM EDT Routine general medical examination at a [facility] facility from Last 3 Months or Most Recently Relevant to Health Maintenance Results * (ABNORMAL) HGA1C W/EAG Routine (04/20/2025 9:53 AM EDT) HEMOGLOBIN A1C 6.0(H) <5.7 % [facility] Comment: For someone without known diabetes, a [...] A1c for diagnosis of diabetes for children. EAG (MG/DL) 126 mg/dL [facility] EAG (MMOL/L) 7.0 mmol/L [facility] Blood Blood / Unknown 04/20/2025 9 :53 AM EDT 04/20/2025 9:54 AM EDT Narrative [facility] - 04/22/2025 12:20 AM EDT FASTING:NO Susi [facility] - BLOOD DRAW Fin al Result [facility] [address] [address], [facility] [address] [place] [address] * COMPREHENSIVE METABOLIC PANEL Routine (04/20/2025 9:53 AM EDT) GLUCOSE 88 65 - 139 mg/dL [facility] Comment: Non-fasting reference interval UREA NITROGEN (BUN) 20 7 - 25 mg/dL [facility] CREATININE (blood) 0.78 0.70 - 1.35 mg/dL [facility] EGFR 101 > OR = 60 mL/min/1. 73m2 [facility] BUN/CREATININE RATIO SEE NOTE: [facility] Comment: Not Reported: BUN and Creatinine are within reference range. SODIUM 140 135 - 146 mmol/L [facility] POTASSIUM 4.6 3.5 - 5.3 mmol/L [facility] CHLORIDE 109 98 - 110 mmol/L [facility] CARBON DIOXIDE 27 20 - 32 mmol/L [facility] CALCIUM 8.9 8.6 - 10.3 mg/dL [facility] PROTEIN, TOTAL 6.3 6.1 - 8.1 g/dL [facility] ALBUMIN 4.2 3.6 - 5.1 g/dL [facility] GLOBULIN 2.1 1.9 - 3.7 g/dL (calc) [facility] ALBUMIN/GLOBULI N RATIO 2.0 1.0 - 2.5 (calc) [facility] BILIRUBIN, TOTAL 0.4 0.2 - 1.2 mg/dL [facility] ALKALINE PHOSPHATASE 71 35 - 144 U/L [facility] AST 15 10 - 35 U/L [facility] ALT 16 9 - 46 U/L [facility] Blood Blood / Unknown 04/20/2025 9 :53 AM EDT 04/20/2025 9:54 AM EDT Narrative [facility] - 04/22/2025 12:20 AM EDT FASTING:NO Susi [facility] - BLOOD DRAW Shon jodi Result - Final [facility] [address] [address], [facility] [address] [address] * OTHER ORDERS SCANNED DOCUMENT (04/20/2025 3:00 AM EDT) Only the most recent of2 resultswithin the time period is included. 04/20/2025 3:00 AM EDT [facility] ANALYTICAL STATISTICIAN SCAN OTHER ORDERS Final Result * HISTORIC COLONOSCOPY (04/11/2025 3:00 AM EDT) 04/11/2025 3:00 AM EDT Smith Randall MD PROCEDURES Final Result * HISTORIC COLONOSCOPY (04/10/2025 3:00 AM EDT) 04/10/2025 3:00 AM EDT [facility] ANALYTICAL STATISTICIAN PROCEDURES Final Result * REFERRAL SCANNED DOCUMENT (02/28/2025 3:00 AM EDT) Only the most recent of2 resultswithin the time period is included. 02/28/2025 3:00 AM EDT [facility] ANALYTICAL STATISTICIAN SCAN REFERRAL Final Result * REMOVAL IMPACTED CERUMEN IRRIGATION/LVG UNILAT, HC REMOVAL IMPACTED CERUMEN IRRIGATION/LVG UNILAT (01/26/2025 10:00 AM EDT) Narrative Romelia Moser RN - 01/26/2025 10:00 AM EDT Romelia Moser RN 01/26/2025 4:43 PM Cerumen Removal Date/Time: 01/26/2025 10:00 AM Performed by: Romelia Moser RN Authorized by: Romelia Moser RN Consent given by: patient Anesthesia: Local Anesthetic: none Location details: left ear Comments: Pt present to [facility] for ear lavage. Pt states he has been using the debrox as prescribed. This nurse attempted ear lavage. Pt requesting ear lavage to be stopped. This nurse stopped with procedure. Cerumen has not fully been removed. This nurse advised pt to keep using the debrox and to contacted [facility] if he deems necessary for another ear lavage. Pt agreed and understands. No further questions or concerns. Procedure type: irrigation Sedation: Patient sedated: no Consent: Consent obtained: Verbal Consent given by: Patient Risks, benefits, and alternatives were discussed: yes Risks discussed: Temporary hearing loss, bleeding, dizziness, infection, pain, rupture of ear drum and external ear canal trauma Romelia Moser RN PROCEDURES Edited Result - Final * IMAGING SCANNED DOCUMENT (01/26/2025 3:00 AM EDT) 01/26/2025 3:00 AM EDT Mariah Das ANALYTICAL STATISTICIAN SCAN IMAGING Final Result * LIPID PANEL (01/18/2025 2:31 PM EDT) [facility] CHOLESTEROL, TOTAL 136 <200 mg/dL [facility] HDL CHOLESTEROL 49 > OR = 40 mg/dL [facility] TRIGLYCERIDES 81 <150 mg/dL [facility] LDL-CHOLESTEROL 71 99 mg/dL (calc) [facility] Comment: Reference range: <100 Desirable range <100 mg/dL for primary prevention; <70 mg/dL for patients with CHD or diabetic patients with > or = 2 CHD risk factors. LDL-C is now calculated using the Tyson-Khai calculation, which is a validated novel method providing better accuracy than the Friedewald equation in the estimation of LDL-C. Tyson SS et al. ROBERTO. 2013;310(19): 6048-0861 (http://education.[employer]el/faq/LEJ440) CHOL/HDLC RATIO 2.8 <5.0 (calc) [facility] NON-HDL CHOLESTEROL 87 <130 mg/dL (calc) [facility] Comment: For patients with diabetes plus 1 major ASCVD risk factor, treating to a non-HDL-C goal of <100 mg/dL (LDL-C of <70 mg/dL) is considered a therapeutic option. Blood Blood / Unknown 01/18/2025 2 :31 PM EDT 01/18/2025 2:31 PM EDT Narrative [facility] - 01/19/2025 4:34 AM EDT FASTING:NO Mariah Das ANALYTICAL STATISTICIAN LAB - BLOOD DRAW Final Resul t [facility] [place] [facility] [address] [address], [facility] [address] [place] [address] * LUNG CANCER SCREENING (LOW DOSE CT OF CHEST) SCANNED DOCUMENT (11/17/2024 3:00 AM EST) 11/17/2024 3:00 AM EST Regina Medel ANALYTICAL STATISTICIAN SCAN IMAGING Final Result * (ABNORMAL) DRUG MONITORING, PANEL 8 WITH CONFIRMATION, URINE (01/13/2023 9:37 AM EDT) AMPHETAMINES NEGATIVE <500 [facility] BENZODIAZEPINES NEGATIVE <100 [facility] BUPRENORPHINE NEGATIVE <[address] [facility] COCAINE METABOLITE NEGATIVE <150 Q [employer] 6 ACETYLMORPHINE NEGATIVE <[address] [facility] MARIJUANA METABOLITE POSITIVE(A) <[address] [facility] MEDMATCH MARIJUANA METAB PENDING [facility] MARIJUANA METABOLITE 372(H) <5 ng/mL [facility] MEDMATCH MARIJUANA METAB PENDING [facility] Marijuana Comments See Note Q [facility] [employer] [facility] Comment:See Marijuana Notes, LDT Notes MDMA NEGATIVE <500 [facility] OPIATES NEGATIVE <100 [facility] OXYCODONE NEGATIVE <100 [facility] CREATININE 200.0 > or = 20.0 mg/dL [facility] PH 7.1 4.5 - 9.0 [facility] OXIDANT NEGATIVE <200 [facility] ALCOHOL METABOLITES NEGATIVE <500 [facility] Urine Urine specimen / Unknown 01/13/2023 9:37 AM EDT 01/13/2023 9:37 AM EDT Regina Medel ANALYTICAL STATISTICIAN LAB URINE AMBULATORY Edited Re sult - Final [facility] [address] [address], [place] [facility] [address] [place] [address] * STOOL OCCULT BLOOD (POCT) (05/04/2019 3:37 PM EDT) FECAL OCCULT BLOOD NEGATIVE NEGATIVE [facility] POCT FECAL OCCULT BLOOD #2 NEGATIVE NEGATIVE [facility] POCT FECAL OCCULT BLOOD #3 NEGATIVE NEGATIVE [facility] POCT Stool specimen (specimen) Stool specimen / Unknown 05/04/2019 3:37 PM EDT Regina Gustephani [facility] - BLOOD DRAW Final Result [facility] POCT * HEPATITIS C ANTIBODY (04/28/2019 9:30 AM EDT) HEPATITIS C VIRUS SCREEN NEGATIVE NEGATIVE [facility] Blood specimen (specimen) Blood / Unknown 04/28/2019 9:30 AM EDT 04/28/2019 9:[address] [facility] - 04/28/2019 2:27 PM EDT [employer], [place] [address] E Learning Developer - Selina Camarillo MD PT ID [id number] ORD# [id number] Regina Medel [facility] - BLOOD DRAW Final Result Performing Organization Address City/[facility]/ZIP Co de Phone Number [address] [address], * HIV-1 & HIV-2 ANTIBODIES (04/28/2019 9:30 AM EDT) HIV 1 AND 2 ANTIBODY SCREEN NEGATIVE NEGATIVE [facility] Comment: This assay is a 4th generation assay allowing for earlier detection of HIV infection by detecting the presence of the HIV-1 p24 antigen as well as the traditional antibodies to HIV type 1 (including group O) and type 2. Use of a 4th generation assay is the current CDC recommendation for HIV screening. Blood specimen (specimen) Blood / Unknown 04/28/2019 9:30 AM EDT 04/28/2019 9:38 AM EDT [facility] - 04/28/2019 2:27 PM EDT [employer] [address] E Learning Developer - Selina Camarillo MD PT ID [id number] ORD# [id number] Regina Medel [facility] - BLOOD DRAW Final Result Performing Organization Address City/State/[facility] Co de Phone Number [address] [address], from Last 3 Months or Most Recently Relevant to Health Maintenance Insurance [place] Care Teams High [employer] Band Teacher Relationship Specialty Start Date End Date Regina Medel FNP [address] [place] [id number] PCP - General Internal Medicine 04/10/19
--- OUTSIDE RECORDS SUMMARY | 2025-04-25 13:35 | XMS_ITS | Clinical Summary ---
Author Organization [facility] Address [address] [place] [address] Phone Care Team Providers Care Leather Roller Name Role Phone Regina Medel NP Primary Care Provider [phone] Encounters Date Type Department Care Team Description 01/26/2025 3:45 PM EDT - 01/26/2025 11:59 PM EDT Hospital Encounter [facility] Xray [address] [place] [address] Encounter for screening for respiratory tuberculosis Discharge Disposition: Home or Self Care from Last 3 Months Medical History Medical History Date Comments Essential [...] Health Maintenance Due Date Last Done Comments Colorectal Cancer Screening: Colonoscopy 09/09/2022 Lung Cancer Screening (Low Dose CT) 09/09/2022 Medicare Annual Wellness Visit 09/09/2022 Social Influencers of Health Screening 09/09/2022 RSV Immunization Adult Patients (1 - Risk 60-74 years 1-dose series) 2022 Depression Screening 09/27/2024 Influenza Vaccine (#1) 2025 , 02/02/2022, 10/03/2020, Additional history exists DTaP,Tdap,and Td Vaccines (2 - Td or Tdap) 04/28/2029 04/28/2019 Cholesterol Screening (Lipid Panel) 01/18/2030 01/18/2025, 01/18/2025, 04/13/2024, Additional history exists HIV Screening Completed 04/28/2019 Hepatitis C Screening Completed 04/28/2019, 019 Zoster Vaccines Completed 07/07/2019, 05/02/2019 COVID-19 Vaccine Completed 07/14/2024, , 09/15/2022, Additional history exists Pneumococcal Vaccine: 50+ Years Completed 07/14/2024, 04/28/2019 HIB Vaccines Aged Out No longer eligi [...] 20 months Aged Out No longer eligible based on patient's age to complete this topic Varicella Vaccines Aged Out No longer eligible based on patient's age to complete this topic Procedures Procedure Name Priority Date/Time Associated Diagnosis Comments XR CHEST 2 VIEWS Routine 01/26/2025 4:12 PM EDT Encounter for screening for respiratory tuberculosis from Last 3 Months Results * XR Chest 2 Views (01/26/2025 4:12 PM EDT) Anatomical Region Laterality Modality Body Radiographic Denice ging 01/29/2025 8:59 AM EDT Impressions 01/29/2025 9:00 AM EDT No acute pulmonary disease. No change since 10/20/2022. Code 17671 -------- FINAL REPORT -------- Dictated By: Sukhjinder Blake Dictated Date: 01/29/2025 08:59 ET Assigned Physician: Sukhjinder Blake Reviewed and Electronically Signed By: Sukhjinder Blake Signed Date: 01/29/2025 09:00 ET Workstation ID: [id number] Transcribed By: Self Edit Transcribed Date: 01/29/2025 08:59 ET Narrative 01/29/2025 9:00 AM EDT HISTORY: The patient is a 64-year-old male with history of positive PPD. FINDINGS: PA and lateral radiographs of the chest again demonstrate that the patient has undergone spinal surgery at the cervicothoracic junction as also seen on the prior study performed 10/20/2022. Again seen are degenerative changes of the thoracic spine. The cardiac and mediastinal contours are within normal limits. The lungs and costophrenic angles are clear. Procedure Note Sukhjinder Blake MD - 01/29/2025 HISTORY: The patient is a 64-year-old male with history of positive PPD. FINDINGS: PA and lateral radiographs of the chest again demonstrate thatthe patient has undergone spinal surgery at the cervicothoracic junctionas also seen on the prior study performed 10/20/2022. Again seen aredegenerative changes of the thoracic spine. The cardiac and mediastinalcontours are within normal limits. The lungs and costophrenic angles areclear. IMPRESSION: No acute pulmonary disease. No change since 10/20/2022. Code 12926 -------- FINAL REPORT -------- Dictated By: Sukhjinder Blake Dictated Date: 01/29/2025 08:59 ET Assigned Physician: Sukhjinder Blake Reviewed and Electronically Signed By: Sukhjinder Blake Signed Date: 01/29/2025 09:00 ET Workstation ID: [id number] Transcribed By: Self Edit Transcribed Date: 01/29/2025 08:59 ET us Mariah Das DEPUTY PROBATION OFFICER IMG XR PROCEDURES Final Resu lt from Last 3 Months Insurance MEDICARE MEDICAID - [place] Care Teams Leather Roller Relationship Specialty Start Date End Date Regina Medel NP [address] [place] [phone] PCP - General 07/21/22
== END 2025-04-25 14:07 | disposition home or self-care (01) ==
LOC: HO.HNS 13:01
PROVIDERS: PCP Nurse Practitioner Family; Visit Provider Neurological Surgery
DX: R29.898 Other symptoms and signs involving the musculoskeletal system (principal); M48.061 Spinal stenosis, lumbar region without neurogenic claudication
CPT/HCPCS: 99213

== ENCOUNTER → 2025-04-25 13:00 | Outpatient (BNVA) | payer MEDICARE, MEDICAID, SELFPAY | PROVIDERS: PCP Nurse Practitioner Family; Visit Provider Neurological Surgery | DX: R29.898 Other symptoms and signs involving the musculoskeletal system (principal); M48.061 Spinal stenosis, lumbar region without neurogenic claudication | CPT/HCPCS: 99212 ==

== ENCOUNTER 2025-06-01 12:37 | Outpatient (AMB) | payer MEDICARE, MEDICAID, SELFPAY ==
--- NOTE | 2025-06-01 12:53 | A.SPINEOV_ITS ---
Intake Visit Reasons: Discuss MRi results Intake Note: Mr. Oliver is here today to Discuss the results to his MRI. Powdered Sugar Pulverizer Operator Required: No Allergies No Known Allergies Allergy (Verified 04/25/25 13:37) Assessment & Plan Assessment & Plan (1) Lumbar stenosis: Code(s): M48.061 - Spinal stenosis, lumbar region without neurogenic claudication Category: Medical Qualifiers: Neurogenic claudication status: without neurogenic claudication Qualified Code(s): M48.061 - Spinal stenosis, lumbar region without neurogenic claudication Plan Dear colleague, On 06/01/2025, I saw for follow-up Tereso Oliver for back pain. In the last visit he complained of progressive proximal leg weakness therefore I ordered an MRI of the cervical and thoracic spine. He also complained of increasing pain from the back radiating down both legs with walking and standing that improves when he sits down or leans forward. The MRI of the cervical spine shows old myelomalacia at C5-6 and C6-7. The thoracic spine shows a minor disc bulge T5- T6 with possible myelomalacia at this level. I told him that no surgery is indicated and that the weakness he is reporting is most likely residual effect from his previous cervical spinal cord compression that he was operated on. As far as the neurogenic claudication symptoms. He does have brfpjgge-xd-roabhs spinal stenosis L3-4 and L4-5. I offered him a decompression of the levels to address the pain radiating from his back to the outside of his legs. I quoted a 75% success rate. This will be done in day surgery. He needs to discontinue his aspirin, anti-inflammatories. Apparently, he has COPD for which he has seen annually by a laundry worker at [facility]. In the office today there were absolutely no signs of shortness of breath. He is scheduled for surgery 07/03/2025. I spent 35 minutes in his consult reviewing imaging and discussing plan of care Thank you for allowing me take care of your patient. Ebre Christiansen MD, PhD Spine Fellowship Trained Neurosurgeon Director, [facility] Coding Level of Care Code Est Pt Level 4 (19475) Diagnoses Spinal stenosis of lumbar region without neurogenic claudication M48.061 Neurogenic claudication status: without neurogenic claudication
--- OUTSIDE RECORDS SUMMARY | 2025-06-01 12:54 | XMS_ITS | Clinical Summary ---
Author Organization [facility] Address [address] [place] [phone] Phone Care Team Providers Care Barrer And Tacker Name Role Phone Regina Medel NP Primary Care Provider [phone] Medical History Medical History Date Comments Essential [...] Depression Screening 09/27/2024 Influenza Vaccine (#1) 2025 4, 02/02/2022, 10/03/2020, Additional history exists DTaP,Tdap,and Td [...] on patient's age to complete this topic Insurance MEDICARE MEDICAID - [place] Care Teams Barrer And Tacker Relationship Specialty Start Date End Date Regina Medel NP [address] [place] [address] PCP - General 07/21/22
--- OUTSIDE RECORDS SUMMARY | 2025-06-01 12:54 | XMS_ITS | Clinical Summary ---
Author Organization [facility] Address [address] [place] [address] Care Team Providers Care Cinder Dump Crane Operator Name Role Phone Regina Mdeel [facility] Primary Care Provider [phone] Source Comments PLEASE NOTE, if this patient [...] once daily with breakfast 02/17/20 24 Active polyethylene glycol, PEG, 3350 (GLYCOLAX) [...] s:Chronic obstructive pulmonary disease, unspecified COPD type ([facility]) INHALE 2 PUFFS INTO THE LUNGS EVERY [...] with breakfast 90 Tablet 01/25/20 25 Active sildenafiL (VIAGRA) 100 mg tabletIndications :Erectile dysfunction, unspecified erectile dysfunction type Take 1 Tablet by mouth once daily as needed for erectile dysfunction. 10 Tablet 1 03/08/20 25 Active traMADoL (ULTRAM) 50 mg tabletIndications :Lumbar back pain with radiculopathy affecting right lower extremity,DDD (degenerative disc disease), lumbar TAKE 1 TABLET BY MOUTH TWICE DAILY NEEDED FOR PAIN. 30 Tablet 05/04/20 25 Active sennosides (SENNA) 8.6 mg tabletIndications :Slow transit constipation TAKE 1 TABLET BY MOUTH EVERY DAY NEEDED CONSTIPATION. 90 Tablet 2 05/04/20 25 Active docusate sodium (COLACE) 100 mg capsuleIndication s:Slow transit constipation Take 1 Capsule by mouth 3 (three) times daily as needed for constipation. 60 Capsule 1 05/04/20 25 Active sennosides (SENNA) 8.6 mg tablet TAKE 1 TABLET BY MOUTH EVERY DAY NEEDED CONSTIPATION 90 Tablet 2 04/12/20 24 025 Discontin ued(Reord er (E-Cancel Not Sent)) traMADoL (ULTRAM) 50 mg tabletIndications :Lumbar back pain with radiculopathy affecting right lower extremity,DDD (degenerative disc disease), lumbar TAKE 1 TABLET BY MOUTH TWICE DAILY NEEDED FOR PAIN. 30 Tablet 03/08/20 25 025 Discontin ued(Reord er (E-Cancel Not Sent)) Active Problems Problem Noted Date Diagnosed Date Prediabetes 04/18/2024 Slow transit constipation 01/13/2023 Neck pain with history of cervical spinal surger y 10/01/2022 Overview (01/13/2023): laminectomy on 10/01/2022. had C7-T1 decompression foraminotomies fixation, done at [facility] Malignant neoplasm of prostate ([facility]) 0 09/27/2022 Overview (04/12/2024): 03/2024: prostrate cancer free per pt. Sees urology Diverticulosis 01/25/2022 Overview (04/12/2024): seen on colonosocopy MINNA (obstructive sleep apnea ): does not CPAP due to discomfort 08/22/2019 Overview (04/18/2022): refuses to wear any form of cpap mask. COPD (chronic obstructive pu lmonary disease) ([facility]) 03/28/2019 Overview (03/28/2019): Noted on CXR 03/27/19 Cervical myelopathy and stenosis C5-T1 8 Overview (06/24/2022): 04/22/2022: Johny: MRI of cervical: FINDINGS: Cervical vertebral body [...] caudal cervical spine as noted. Xray 10/29/17 [facility] cervical spine shows mild degen changes and cervical spondylolisthesis, osseous neuroforaminal encroachment right greater than left. MRI of cervical spine 11/22/17 at [facility] shows multilevel degenerative changes most severe at C5-T1 levels with central canal stenosis, multilevel neural foraminal narrowing with focal myelomalacia in the posterior spinal cord at C5-C6 and C6- C7. 01/05/18 Eval at [facility] Neurosurgery, Dr Rosen. Recommends 3-level anterior [...] S1 transforaminal epidural injections 07/29/[address] Herrear 10/11/17 F/u [facility]. Dx: DDD R hip, give hip injection, f/u 3 weeks. C/o upper and lower back pain, failed trial of venlafaxin, continue topamax Xray lumbar spine 10/29/17 at [facility] shows DDD, mild disc level degenerative changes [...] of major depressive disorder without prior episode (CMS & HHS-HCC) 01/13/2023 03/24/2023 Right cervical radiculopathy 01/23/2016 03/15/2018 Encounters Date Type Department Care Team Description 04/24/2025 Results Follow-Up [address] [phone] Susi Leonard FNP 04/20/2025 9:40 AM EDT Office Visit [address] [phone] Susi Leonard FNP from Last 3 Months Immunizations Immunization Administration Dates Next Due Flu, Preservative Free 02/02/2022,10/03/2020 INFLUENZA, SEASONAL, INJECTABLE 10/01/2016 Influenza (FLUBLOK),recombinant,injectable,preservative Free 07/14/2024 PNEUMOCOCCAL CONJUGATE PCV 20 (Prevnar 20) 07/14 PNEUMOCOCCAL POLYSACCHARIDE PPV23 (Pneumovax 23) 04/28/2019 Pfizer COVID vaccine, COMIRNATY, edgar cap, 12+ 1 11/16/2021,08/05/2022 Pfizer COVID-19 (Comirnaty), Mrna, Lnp-s, Pf, Gregorio-sucrose, 30 Mcg/0.3 Ml, 12yr+ 07/14/2024 Ceradis[employer] COVID-19 Vac cine Bivalent, (EDGAR PFIZER-BIONTECH COVID-19 [...] Completed 04/28/2019 Imm-Zoster, Recombinant Completed 07/07/2019, 05/02 [id number] Completed 07/14/2024, 12/26, 09/15/2022, Additional history exists Imm-Pneumococcal 50+ Completed 07/14/2024, 04/28/20 Alcohol and Drug Screen Completed 04/20/20, 04/12/2024, 01/13/2023, Additional history exists Procedures Procedure Name Priority Date/Time Associated Diagnosis Comments OTHER ORDERS SCANNED DOCUMENT 05/30/2025 3:00 AM EDT REFERRAL SCANNED DOCUMENT 04/25/2025 3:00 AM EDT HGA1C W/EAG Routine 04/20/2025 9:53 AM EDT Prediabetes COMPREHENSIVE METABOLIC PANEL Routine 04/20/2025 9:53 AM EDT Prediabetes OTHER ORDERS SCANNED DOCUMENT 04/20/2025 3:00 AM EDT HISTORIC COLONOSCOPY 04/11/2025 3:00 AM EDT HISTORIC COLONOSCOPY 04/10/2025 3:00 AM EDT LIPID PANEL Routine 01/18/2025 [...] EDT Routine general medical examination at a [facility] care facility ANTIBODY HIV-1&HIV-2 SINGLE RESULT Routine 04/28/2019 9:30 AM EDT Routine general medical examination at a [facility] care facility HEPATITIS C ANTIBODY Routine 04/28/2019 9:30 AM EDT Routine general medical examination at a [facility] care facility from Last 3 Months or Most Recently Relevant to Health Maintenance Results * OTHER ORDERS SCANNED DOCUMENT (05/30/2025 3:00 AM EDT) Only the most recent of2 resultswithin the time period is included. 05/30/2025 3:00 AM EDT [facility] EQUIPMENT OPERATOR/LABORER/SUPERVISOR SCAN OTHER ORDERS Final Result * REFERRAL SCANNED DOCUMENT (04/25/2025 3:00 AM EDT) 04/25/2025 3:00 AM EDT Regina [employer] EQUIPMENT OPERATOR/LABORER/SUPERVISOR SCAN REFERRAL Final Result * (ABNORMAL) HGA1C W/EAG Routine (04/20/2025 9:53 AM EDT) HEMOGLOBIN A1C 6.0(H) <5.7 % [employer] Comment: For someone without known diabetes, a [...] diabetes for children. EAG (MG/DL) 126 mg/dL [employer] EAG (MMOL/L) 7.0 mmol/L [facility] Blood Blood / Unknown 04/20/2025 9 :53 AM EDT 04/20/2025 9:54 AM EDT Narrative [facility] - 04/22/2025 12:20 AM EDT FASTING:NO Susi Leonard EQUIPMENT OPERATOR/LABORER/SUPERVISOR LAB - BLOOD DRAW Fin al Result [facility] [address] [address], [facility] [address] [place] [address] * COMPREHENSIVE METABOLIC PANEL Routine (04/20/2025 9:53 AM EDT) GLUCOSE 88 65 - 139 mg/dL [facility] Comment: Non-fasting reference interval UREA NITROGEN (BUN) 20 7 - 25 mg/dL [facility] CREATININE (blood) 0.78 0.70 - 1.35 mg/dL [facility] EGFR 101 > OR = 60 mL/min/1. 73m2 [facility] BUN/CREATININE RATIO SEE NOTE: [facility] Comment: Not Reported: BUN and Creatinine are within reference range. SODIUM 140 135 - 146 mmol/L [facility] POTASSIUM 4.6 3.5 - 5.3 mmol/L [facility] CHLORIDE 109 98 - 110 mmol/L [facility] CARBON DIOXIDE 27 20 - 32 mmol/L [facility] CALCIUM 8.9 8.6 - 10.3 mg/dL [facility] PROTEIN, TOTAL 6.3 6.1 - 8.1 g/dL [facility] ALBUMIN 4.2 3.6 - 5.1 g/dL [facility] GLOBULIN 2.1 1.9 - 3.7 g/dL (calc) [facility] ALBUMIN/GLOBULI N RATIO 2.0 1.0 - 2.5 (calc) [facility] BILIRUBIN, TOTAL 0.4 0.2 - 1.2 mg/dL [facility] ALKALINE PHOSPHATASE 71 35 - 144 U/L [facility] AST 15 10 - 35 U/L [facility] ALT 16 9 - 46 U/L [facility] Blood Blood / Unknown 04/20/2025 9 :53 AM EDT 04/20/2025 9:54 AM EDT Narrative [facility] - 04/22/2025 12:20 AM EDT FASTING:NO Susi LopezСветланаJess EQUIPMENT OPERATOR/LABORER/SUPERVISOR LAB - BLOOD DRAW Shon jodi Result - Final [facility] [address] [address], [facility] [address] [address] * HISTORIC COLONOSCOPY (04/11/2025 3:00 AM EDT) 04/11/2025 3:00 AM EDT Smith Randall MD PROCEDURES Final Result * HISTORIC COLONOSCOPY (04/10/2025 3:00 AM EDT) 04/10/2025 3:00 AM EDT Regina Medel EQUIPMENT OPERATOR/LABORER/SUPERVISOR PROCEDURES Final Result * LIPID PANEL (01/18/2025 2:31 PM EDT) [facility] Signature CHOLESTEROL, TOTAL 136 <200 mg/dL [facility] HDL CHOLESTEROL 49 > OR = 40 mg/dL [facility] TRIGLYCERIDES 81 <150 mg/dL [facility] LDL-CHOLESTEROL 71 99 mg/dL (calc) [facility] Comment: Reference range: <100 Desirable range <100 mg/dL for primary prevention; <70 mg/dL for patients with CHD or diabetic patients with > or = 2 CHD risk factors. LDL-C is now calculated using the Cata calculation, which is a validated novel method providing better accuracy than the Friedewald equation in the estimation of LDL-C. Tyson REHMAN et al. ROBERTO. 2013;310(19): 1952-4369 (http://education.NetSpark.LiveDeal/faq/JRU982) CHOL/HDLC RATIO 2.8 <5.0 (calc) [employer] NON-HDL CHOLESTEROL 87 <130 mg/dL (calc) [employer] Comment: For patients with diabetes plus 1 major ASCVD risk factor, treating to a non-HDL-C goal of <100 mg/dL (LDL-C of <70 mg/dL) is considered a therapeutic option. Blood Blood / Unknown 01/18/2025 2 :31 PM EDT 01/18/2025 2:31 PM EDT Narrative [facility] - 01/19/2025 4:34 AM EDT FASTING:NO Mariah Das EQUIPMENT OPERATOR/LABORER/SUPERVISOR LAB - BLOOD DRAW Final Resul t [facility] [address] [address], [facility] [address] [place] [phone] * LUNG CANCER SCREENING (LOW DOSE CT OF CHEST) SCANNED DOCUMENT (11/17/2024 3:00 AM EST) 11/17/2024 3:00 AM EST Regina Medel EQUIPMENT OPERATOR/LABORER/SUPERVISOR SCAN IMAGING Final Result * (ABNORMAL) DRUG MONITORING, PANEL 8 WITH CONFIRMATION, URINE (01/13/2023 9:37 AM EDT) AMPHETAMINES NEGATIVE <500 [facility] [employer] BENZODIAZEPINES NEGATIVE <100 [employer] BUPRENORPHINE NEGATIVE <5 [facility] [employer] [facility] COCAINE METABOLITE NEGATIVE <150 [employer] 6 ACETYLMORPHINE NEGATIVE <[address] [employer] MARIJUANA METABOLITE POSITIVE(A) <20 [employer] MEDMATCH MARIJUANA METAB PENDING [employer] MARIJUANA METABOLITE 372(H) <5 ng/mL [employer] MEDMATCH MARIJUANA METAB PENDING [employer] Marijuana Comments See Note [employer] Comment:See Marijuana Notes, LDT Notes MDMA NEGATIVE <500 [employer] OPIATES NEGATIVE <100 [employer] OXYCODONE NEGATIVE <100 [employer] CREATININE 200.0 > or = 20.0 mg/dL [employer] PH 7.1 4.5 - 9.0 [facility] OXIDANT NEGATIVE <200 [facility] ALCOHOL METABOLITES NEGATIVE <500 [facility] Urine Urine specimen / Unknown 01/13/2023 9:37 AM EDT 01/13/2023 9:37 AM EDT Regina Houwilfridodev EQUIPMENT OPERATOR/LABORER/SUPERVISOR LAB URINE AMBULATORY Edited Re sult - Final Performing Organization Address City/[facility]/ZIP Co de Phone Number [facility] [address] [address], [facility] [address] [place] [address] * STOOL OCCULT BLOOD (POCT) (05/04/2019 3:37 PM EDT) FECAL OCCULT BLOOD NEGATIVE NEGATIVE [facility] PO[facility] FECAL OCCULT BLOOD #2 NEGATIVE NEGATIVE [facility]CT FECAL OCCULT BLOOD #3 NEGATIVE NEGATIVE [facility] Stool specimen (specimen) Stool specimen / Unknown 05/04/2019 3:37 PM EDT Regina AmeyawilfridoFormerly [facility] LAB BODY FLUIDS AND STOOLS AMB ULATORY Final Result Performing Organization Address [facility] Co de Phone Number [facility] * HEPATITIS C ANTIBODY (04/28/2019 9:30 AM EDT) HEPATITIS C VIRUS SCREEN NEGATIVE NEGATIVE [facility] Blood specimen (specimen) Blood / Unknown 04/28/2019 9:30 AM EDT 04/28/2019 9:38 AM EDT Narrative [facility] - 04/28/2019 2:27 PM EDT [employer], a member of [address] [address] Filament Maker - Selina Camarillo MD PT ID [id number] ORD# [id number] Regina Ameyastephani [facility] LAB - BLOOD DRAW Final Result Performing Organization Address City/[facility] Co de Phone Number [email or web address] [address], * HIV-1 & HIV-2 ANTIBODIES (04/28/2019 9:30 AM EDT) [facility] Signature HIV 1 AND 2 ANTIBODY SCREEN NEGATIVE NEGATIVE [facility] Comment: This assay is a 4th generation [...] AM EDT 04/28/2019 9:38 AM EDT Narrative [facility] - 04/28/2019 2:27 PM EDT [employer], a member of [address] [address] Filament Maker - Selina Camarillo MD PT ID [id number] ORD# [id number] Regina Medel [facility] LAB - BLOOD DRAW Final Result [facility] [address] [place] [address], from Last 3 Months or Most Recently Relevant to Health Maintenance [place] Care Teams Cinder Dump Crane Operator Relationship Specialty Start Date End Date Regina Medel FNP [facility] [place] [address] PCP - General Internal Medicine 04/10/19
== END 2025-06-01 14:09 | disposition home or self-care (01) ==
LOC: HO.HNS 12:37
PROVIDERS: PCP Nurse Practitioner Family; Visit Provider Neurological Surgery
DX: M48.061 Spinal stenosis, lumbar region without neurogenic claudication (principal)
CPT/HCPCS: 99214

== ENCOUNTER → 2025-06-01 12:37 | Outpatient (BNVA) | payer MEDICARE, MEDICAID, SELFPAY | PROVIDERS: PCP Nurse Practitioner Family; Visit Provider Neurological Surgery | DX: M48.061 Spinal stenosis, lumbar region without neurogenic claudication (principal) | CPT/HCPCS: 99212 ==

== ENCOUNTER → 2025-06-26 13:12 | Outpatient (BNV) | payer MEDICARE, MEDICAID, SELFPAY | PROVIDERS: PCP Dentist General Practice; Visit Provider Internal Medicine | DX: R00.1 Bradycardia, unspecified (principal) | CPT/HCPCS: 93010 ==

== ENCOUNTER 2025-07-03 11:22 | Day surgery (SDC) | payer MEDICARE, MEDICAID, SELFPAY ==
--- OUTSIDE RECORDS SUMMARY | 2025-06-06 16:13 | XMS_ITS | Clinical Summary ---
Author Organization [facility] Address [address] [place] [phone] Phone Care Team Providers Care Box Maker Paperboard Name Role Phone Regina Medel NP Primary Care Provider [phone] Medical History Medical History Date Comments Essential [...] Insurance MEDICARE MEDICAID - [place] Care Teams Box Maker Paperboard Relationship Specialty Start Date End Date Regina Medel NP [address] [place] [address] PCP - General 07/21/22
--- NOTE | 2025-06-26 | ECG_ITS ---
Test Reason : preop Blood Pressure : */* mmHG Vent. Rate : 49 BPM Atrial Rate : 49 BPM P-R Int : 152 ms QRS Dur : 92 ms QT Int : 426 ms P-R-T Axes : 62 49 44 degrees QTcB Int : 384 ms Sinus bradycardia Otherwise normal ECG No previous ECGs available Referred By: Sonya Acosta Electronically Signed By: ASUNCION TARIQ
[2025-06-26 12:18] VITALS: BP 120/69; PULSE 67; RESP 16; O2SAT 97; BMI 25.7
[2025-06-26 13:44] LABS: Hematocrit 37.8 % (42.0-52.0); Hemoglobin 12.4 g/dl (14.0-18.0); Mean Corpuscular HGB Conc 32.8 g/dl (31.0-36.0); Mean Corpuscular Hemoglobin 30.6 pg (27.0-33.0); Mean Corpuscular Volume 93.3 fL (80.0-98.0); NRBC Abs Auto 0.000 X10*3/uL (0.0-0.012); NRBC Pct Auto 0.0 /100WBC (0.0-0.2); Platelet Count 224 X10*3/uL (160-400); Red Blood Count 4.05 X10*6/uL (4.60-5.80); White Blood Count 7.8 X10*3/uL (4.8-10.8)
--- NOTE | ~2025-07-03 | FL_ITS ---
EXAMINATION: FL GUIDANCE ONLY HISTORY: L3-4, L4-5 Decompression COMPARISON: None available. TECHNIQUE: Fluoroscopy time: 4.7 minutes. Cumulative Dose: 2.297 mGy. DAP: 0.7722 Gycm2 Images: 1. FINDINGS: A single fluoroscopic spot film of the lumbar spine in the lateral projection demonstrates a probe directed toward the L4-5 level from a posterior approach. FL/FL guidance in OR IMPRESSION: Fluoroscopy during procedure. Please see procedure report for additional information. Electronically signed by: Booker Cash MD 07/03/2025 02:51 PM EDT
[2025-07-03 11:34] VITALS: BMI 26.5
--- NOTE | 2025-07-03 11:54 | PC.NURSE ---
Dr. Garzon aware that patient had coffee/cream at 0600. Ok to proceed. No interventions at this time.
[2025-07-03] MEDS: Lactated Ringers 1,000 ML 100 ML IVCONT (12:05)
[2025-07-03 12:16] LABS: Glucose, Whole Blood 97 mg/dL (60-115)
[2025-07-03 12:20] VITALS: BP 131/82; PULSE 58; RESP 18; TEMP 36.6; O2SAT 99
[2025-07-03 12:21] VITALS: BP 131/82; PULSE 58; RESP 18; TEMP 36.6; O2SAT 99
--- NOTE | 2025-07-03 12:22 | MHC.SHP ---
Pre-Procedural Eval Section A - 24 Hr Update-Section A only Date of Service: 07/03/25 The patient is an INPATIENT: No Section B - Complete if H&P > 30 days Chief Complaint: Spinal stenosis, lumbar region without neurogenic Details of Present Illness: Bilateral leg pain and weakness Allergies: Allergies Allergy/AdvReac Type Severity Reaction Status Date / Time No Known Allergies Allergy Verified 07/03/25 11:38 Review of Systems Sugical H&P ROS: Negative: Constitution, Cardiovascular, Respiratory, Neurological, Psychiatric, Hem-Onc, Allergic/Immunologic, Gastrointestinal, Genitourinary, Musculoskeletal, Integumentary, Endocrine and Eyes/Ears/Nose/Throat Exam Surgical H&P Exam: Normal: HEENT, Normal: Heart, Normal: Lungs, Normal: Extremities, Normal: Abdomen, Normal: Skin and Normal: Neurological (Awake, alert) Plan Diagnosis/Plan: Unchanged I have reviewed the history and physical and performed a pertinent physical examination on my patient. No changes have occurred unless specified. L3-4 and L4-5 decompression Time Spent With Patient Time: Total time managing care of this patient today ____ minutes.
--- NOTE | 2025-07-03 13:04 | HO.ANESPROP2 ---
Documented by User: Sonya Acosta NP 06/26/25 13:22 HPI - Anesthesia Eval Consult details Narrative: 64 yr old male for L3-4, L4-5 Decompression scheduled for 07/03/25, seen in [facility] on 06/26/25 No recent illness No CP/SOB with minimal physical activity 2/2 back pain, has to crawl upstairs . Type 2 DM: A1C 6.0 03/2025 COPD: using albuterol 1-2 times daily, but does not feel that he needs it every day. Smoking 1 pack of cigarettes every 3 days H/O MINNA: does not use CPAP PMFSH Active Problems Active Problems: All Active Problems Leg weakness, bilateral (Acute) Lumbar radiculopathy (Acute) Lumbar stenosis (Acute) Past Medical History Medical History Marijuana use Adjustment disorder with mixed anxiety and depressed mood Anemia Bleeding hemorrhoids GERD (gastroesophageal reflux disease) Hx of radiation therapy Osteoporosis Numbness COVID-19 Positive skin test for tuberculosis (~2009) Wheezing Prediabetes Diverticulosis Slow transit constipation Malignant neoplasm of prostate Neck pain with history of cervical spinal surgery Sleep apnea Myelopathy concurrent with and due to spinal stenosis of cervical region Erectile dysfunction Vitamin D insufficiency Anxiety Depression Hyperlipidemia LDL goal <100 Tobacco abuse disorder Arthropathy of right hip Back pain COPD (chronic obstructive pulmonary disease) Family History Family history of problems with anesthesia: No Surgical History Surgical History H/O colonoscopy Hx of cervical spine surgery (~2022) History of Problems with Anesthesia: No Social History Social History Are you a primary tire care manager to a significant other at home: No Do you presently have visiting nurse or other home services: Yes (OSTOMY RN) Comment: back brace Patient Tobacco Use Status: Current everyday Tobacco user Tobacco use type: Cigarette Cigarettes Per Day: 7 Use of substances other than those prescribed or required for medical reasons: Yes Substance Use Frequency: Daily Have you been hit, kicked, punched, or otherwise hurt by someone within the past year? If so, by whom?: No Are you DNR?: No Advance Directives: No Advance Directives Information Provided: Yes Advance Directives on File: No Poor oral hygiene: Yes Meds Allergies Allergy/AdvReac Type Severity Reaction Status Date / Time No Known Allergies Allergy Verified 07/03/25 11:38 Home Medications ?Medication ?Instructions ?Recorded ?Confirmed ?Last Taken ?Type albuterol sulfate 90 mcg/actuation 2 puff inhalation Q4-6H PRN 06/25/25 06/25/25 Unknown History aerosol inhaler Shortness Of Breath Or Wheezing aspirin 81 mg tablet,delayed 81 mg PO DAILY 06/25/25 06/25/25 06/27/25 History release atorvastatin 20 mg tablet 20 mg PO BEDTIME 06/25/25 06/25/25 Unknown History lidocaine 5 % topical patch 1 patch topical DAILY 06/25/25 06/25/25 Unknown History metformin 500 mg tablet 500 mg PO BID diabetes mellitus 06/25/25 06/25/25 Unknown History naproxen 500 mg tablet 500 mg PO BID PRN pain 06/25/25 06/25/25 06/27/25 History polyethylene glycol 3350 17 17 g PO DAILY PRN constipation 06/25/25 06/25/25 Unknown History gram/dose oral powder sennosides 8.6 mg tablet (senna) 8.6 mg PO DAILY PRN constipation 06/25/25 06/25/25 Unknown History sildenafil 100 mg tablet 100 mg PO DAILY PRN intercourse 06/25/25 06/25/25 Unknown History tamsulosin 0.4 mg capsule 0.4 mg PO DAILY 06/25/25 06/25/25 07/03/25 History acetaminophen 325 mg tablet 650 mg PO Q6H PRN Pain 06/26/25 06/26/25 Unknown History calcium carbonate (Tums) 200 mg PO BID PRN Acid Reflux 06/26/25 06/26/25 Unknown History tramadol 50 mg tablet 50 mg PO BID PRN pain 06/26/25 06/26/25 Unknown History Exam Height,Weight and Vital Signs: Height 5 ft 11 in Weight 83.461 kg Last Vital Signs Pulse 67 06/26/25 12:18 Resp 16 06/26/25 12:18 BP 120/69 06/26/25 12:18 Pulse Ox 97 06/26/25 12:18 O2 Del Method Room Air 06/26/25 12:18 Airway Mallampati Class: II TM Dist: >3cm Neck ROM: Full Partial: Upper Heart: RRR Lungs: CTAB Assessment and Plan Final Anesthetic Review Family History of Problems with Anesthesia: No History of Problems with Anesthesia: No Documented by User: Bethany Garzon DO 07/03/25 13:06 PMFSH Past Medical History Medical History Marijuana use Adjustment disorder with mixed anxiety and depressed mood Anemia Bleeding hemorrhoids GERD (gastroesophageal reflux disease) Hx of radiation therapy Osteoporosis Numbness COVID-19 Positive skin test for tuberculosis (~2009) Wheezing Prediabetes Diverticulosis Slow transit constipation Malignant neoplasm of prostate Neck pain with history of cervical spinal surgery Sleep apnea Myelopathy concurrent with and due to spinal stenosis of cervical region Erectile dysfunction Vitamin D insufficiency Anxiety Depression Hyperlipidemia LDL goal <100 Tobacco abuse disorder Arthropathy of right hip Back pain COPD (chronic obstructive pulmonary disease) Family History Family history of problems with anesthesia: No Surgical History Surgical History H/O colonoscopy Hx of cervical spine surgery (~2022) History of Problems with Anesthesia: No Social History Social History Are you a primary tire care manager to a significant other at home: No Do you presently have visiting nurse or other home services: Yes (OSTOMY RN) Comment: back brace Patient Tobacco Use Status: Current everyday Tobacco user Tobacco use type: Cigarette Cigarettes Per Day: 7 Use of substances other than those prescribed or required for medical reasons: Yes Substance Use Frequency: Daily Have you been hit, kicked, punched, or otherwise hurt by someone within the past year? If so, by whom?: No Are you DNR?: No Advance Directives: No Advance Directives Information Provided: Yes Advance Directives on File: No Poor oral hygiene: Yes Meds Allergies Allergy/AdvReac Type Severity Reaction Status Date / Time No Known Allergies Allergy Verified 07/03/25 11:38 Home Medications ?Medication ?Instructions ?Recorded ?Confirmed ?Last Taken ?Type albuterol sulfate 90 mcg/actuation 2 puff inhalation Q4-6H PRN 06/25/25 06/25/25 Unknown History aerosol inhaler Shortness Of Breath Or Wheezing aspirin 81 mg tablet,delayed 81 mg PO DAILY 06/25/25 06/25/25 06/27/25 History release atorvastatin 20 mg tablet 20 mg PO BEDTIME 06/25/25 06/25/25 Unknown History lidocaine 5 % topical patch 1 patch topical DAILY 06/25/25 06/25/25 Unknown History metformin 500 mg tablet 500 mg PO BID diabetes mellitus 06/25/25 06/25/25 Unknown History naproxen 500 mg tablet 500 mg PO BID PRN pain 06/25/25 06/25/25 06/27/25 History polyethylene glycol 3350 17 17 g PO DAILY PRN constipation 06/25/25 06/25/25 Unknown History gram/dose oral powder sennosides 8.6 mg tablet (senna) 8.6 mg PO DAILY PRN constipation 06/25/25 06/25/25 Unknown History sildenafil 100 mg tablet 100 mg PO DAILY PRN intercourse 06/25/25 06/25/25 Unknown History tamsulosin 0.4 mg capsule 0.4 mg PO DAILY 06/25/25 06/25/25 07/03/25 History acetaminophen 325 mg tablet 650 mg PO Q6H PRN Pain 06/26/25 06/26/25 Unknown History calcium carbonate (Tums) 200 mg PO BID PRN Acid Reflux 06/26/25 06/26/25 Unknown History tramadol 50 mg tablet 50 mg PO BID PRN pain 06/26/25 06/26/25 Unknown History Exam Exam Date and Time: 07/03/25 1300 Height,Weight and Vital Signs: Height 5 ft 11 in Weight 83.461 kg Last Vital Signs Pulse 67 06/26/25 12:18 Resp 16 06/26/25 12:18 BP 120/69 06/26/25 12:18 Pulse Ox 97 06/26/25 12:18 O2 Del Method Room Air 06/26/25 12:18 Vital Signs Pulse Rate 67 06/26/25 12:18 Respiratory Rate 16 06/26/25 12:18 Blood Pressure 120/69 06/26/25 12:18 Pulse Oximetry 97 06/26/25 12:18 Oxygen Delivery Method Room Air 06/26/25 12:18 Temperature 97.9 F 07/03/25 12:21 Pulse Rate 58 07/03/25 12:21 Respiratory Rate 18 07/03/25 12:21 Blood Pressure 131/82 07/03/25 12:21 Pulse Oximetry 99 07/03/25 12:21 Oxygen Delivery Method Room Air 07/03/25 12:21 Airway Mallampati Class: II TM Dist: >3cm Neck ROM: Full Partial: Upper Heart: S1S2 Assessment and Plan Assessment Anesthesia Assessment: Anesthesia Plan Discussed and Chart Reviewed Final Anesthetic Review Family History of Problems with Anesthesia: No History of Problems with Anesthesia: No NPO: Yes ASA Class: III Final Preanesthetic Review: No Changes in Pt Med Stat, Meds/Allgs Chart Reviewed, Consent Obtained/Reviewed and Anes Risks/Benef Reviewed Patient Risk: Intermediate Procedure Risk: Low Anesthetic Plan Anesthetic Plan: GA and Agree w/ Assess. and Plan Disposition: Standard PACU
--- NOTE | 2025-07-03 14:46 | W.PM.OPN ---
Operative Note Operative Note Date of Service: 07/03/25 Narrative: Preoperative Diagnosis: L3-4, L4-5 spinal stenosis/lateral recess stenosis/neural foraminal stenosis Operation: L3-4, L4-5 Laminotomy, Partial facetectomy and foraminotomy with use of microscope Consent Informed Consent was obtained for this operation. I have explained the nature, purpose and benefits of the operation. I have discussed the risks and benefit of the operation including possible complications or adverse events with patient/family. Alternative(s) were discussed with the patient with their relative benefits and risks as well as the consequences of not accepting the operation were included in obtaining consent. Surgeon: SULMA ROCHA MD, PHD Procedure Assisted By: Leroy Pichardo Description of Procedure This patient is suffering from back pain and bilateral leg pain. MRI shows [id number] L3-4 spinal stenosis with hyperintensity of the facet joint spaces and mild to moderate L4-5 stenosis. Dynamic x-rays show no signs of instability.. The patient was offered a decompression of the L3-4 and L4-5 levels. The procedure complications were explained. The patient was consented. The patient was brought to the operating room and endotracheally intubated. The patient was turned in prone position on the Harry frame. Prep and drape was done followed by timeout. The [employer] assistant principal provided access. A mid lumbar incision was made followed by release of the paravertebral muscle on the left side to expose the L3-L5 lamina and facet joints. An intraoperative x-ray was obtained to confirm the correct level. The microscope was brought in. I took over the procedure. 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 This patient will be most likely better off with a fusion in the future. We decided to continue the procedure and provide decompression of the thecal sac and exiting nerve roots. The high-speed drill was used to do a left L3-L4 laminotomy until flavum ligament was reached. A #2 Kerrison was used to expand the laminotomy near flush to the pedicles and to include a partial facetectomy. The flavum ligament was opened and resected with a #3 Kerrison to decompress the underlying thecal sac. The flavum ligament was removed to decompress the lateral recess and the exiting L4 nerve root. Again the medial part of facet joint was completely mobile every time I tried to resect a piece of bone with a Kerrison.. I turned the patient contralaterally and undercut the spinous process and removed more flavum ligament contralaterally. A long nerve hook could be easily passed along the medial side of the pedicles as a sign of adequate decompression. Then attention was turned to the L4-5 level. An L4 laminotomy was done. The flavum ligament was identified and opened and resected towards the L5 lamina. The L5 lamina was undercut. The L5 nerve root was decompressed in the lateral recess. No significant stenosis was present at this level. I reached over contralaterally to remove more flavum ligament and was able to palpate the contralateral pedicle as a sign of adequate decompression. The microscope was removed. Hemostasis was done. The physician [employer] assistant principal close the Incision in 2 layers. Steri-Strips were used to approximate incision. An OpSite with Tegaderm was used to cover the incision. All sponge needle counts were correct. Patient was extubated and transported in stable is to recovery room. Anesthesia: General Estimated Blood Loss (ml): 30 Complications: None Duration of Surgery: 60 minutes Postoperative Plan: Discharge to home
--- NOTE | 2025-07-03 14:59 | PM.DS ---
DS: Providers Provider Date of Service: 07/03/25 Date of discharge: 07/03/25 Primary care physician: [facility] Admitting clinician: Eber Christiansen DS: Diagnosis Discharge Diagnosis (1) Lumbar stenosis: Status: Acute DS: Summary Time Attestation Discharge Coordination Time (in mins): 3 Quality: Safe Use of Opioids Does Pt have an Active Cancer Diagnosis on the Problem List?: No Quality: Stroke Does the patient have a stroke diagnosis?: No Physical Exam Vital Signs: Vital Signs: Last Vital Signs Temp 97.9 F 07/03/25 12:21 Pulse 58 07/03/25 12:21 Resp 18 07/03/25 12:21 BP 131/82 07/03/25 12:21 Pulse Ox 99 07/03/25 12:21 O2 Del Method Room Air 07/03/25 12:21 BMI result Body Mass Index 26.5 DS: Data Data Completed and Pending Labs on day of discharge: Laboratory Results - last 24 hr 07/03/25 12:00 POC Glucose 97 Discharge Plan Discharge Patient Disposition: Home, Self-Care Referrals: [place] [Primary Care Provider, Primary Care] - 1 Week Discharge Medications: New docusate sodium [Colace] 100 mg capsule 100 mg PO BID Qty: 20 0RF oxycodone 5 mg tablet 5 mg PO Q4H PRN (Reason: pain) Qty: 20 0RF Rx Instructions: Partial Fill upon patient request. Continued metformin 500 mg tablet 500 mg PO BID sennosides [senna] 8.6 mg tablet 8.6 mg PO DAILY PRN (Reason: constipation) atorvastatin 20 mg Tablet 20 mg PO BEDTIME sildenafil 100 mg tablet 100 mg PO DAILY PRN (Reason: intercourse) tamsulosin 0.4 mg capsule 0.4 mg PO DAILY lidocaine 5 % adhesive patch,medicated 1 patch topical DAILY polyethylene glycol 3350 17 gram/dose powder 17 g PO DAILY PRN (Reason: constipation) albuterol sulfate 90 mcg/actuation Hfa Aerosol Inhaler 2 puff INHALATION Q4-6H PRN (Reason: Shortness Of Breath Or Wheezing) naproxen 500 mg tablet 500 mg PO BID PRN (Reason: pain) acetaminophen 325 mg Tablet 650 mg PO Q6H PRN (Reason: Pain) tramadol 50 mg tablet 50 mg PO BID PRN (Reason: pain) calcium carbonate [Tums] 200 mg calcium (500 mg) Tablet,Chewable 200 mg PO BID PRN (Reason: Acid Reflux) Held aspirin 81 mg tablet,delayed release (DR/EC) 81 mg PO DAILY Hold Instructions: Resume on 07/10/25. You may restart aspirin 1 week after surgery Discharge Orders: Discharge Order (Routine); Ordered 07/03/25 Ordered By: Leroy Esposito Diet: Advance to usual diet Activity on Discharge: As tolerated Activity Restrictions/Additional Instructions: After your spinal surgery we ask you to observe the following restrictions/guidelines: Activity: It is normal to feel some discomfort as you increase your activity, but that will improve with time. We ask you avoid heavy lifting or acitivities that cause pain. As a general rule, 8lbs is a safe limit for lifting right after surgery. Walk as much as you feel comfortable but not to exhaustion. You will feel extra tired the first few days after surgery. Stay well hydrated. It is OK to walk up and down stairs You may return to driving when you are off narcotics (such as vicodin, oxycodone, dilaudid, etc), and you are back to normal functional capacity. If you have any concerns please check with office before driving. Return to work is specific to each patient and each surgery, so please speak with your doctor/PA at first follow up. Please bring paperwork such as FMLA at that time if you need it filled out. Medications: You may resume aspirin 1 week after surgery For optimum pain control, it is best to start with a combination of 500 mg of Tylenol every 4 hours with 600 mg of Motrin every 8 hours, and use narcotics as needed in between for breakthrough pain. We will give you a short supply of narcotics after surgery (usually one weeks worth). If you need more please call the office but do not use more than prescribed. You will need to give our office 48 hours notice if you need narcotics refilled and we do not fill narcotics on weekends or evenings. If you are on a narcotic, it is a good idea to take a stool softener such as colace or senna to avoid constipation If you take blood thinner such as aspirin, Plavix, Coumadin, Effient, Eliquis etc for conditions such as Afib, DVT, Pulmonary embolus, coronary disease, stents etc please speak with your surgeon about specific details as to when you can resume these medications. Follow up: Please call the office, , after surgery to arrange a 3 week follow up for wound check. Wound Care: You may remove your dressing on the first day after surgery. ?You may ?leave open to air. Please do not remove the steri strips underneath. they will fall off on their own in one week. IT IS NORMAL FOR THE WOUND TO OOZE OR BE BLOODY FOR A FEW DAYS AFTER SURGERY. ?IF THIS HAPPENS JUST PLACE NEW DRESSING OVER IT TO AVOID STAINING CLOTHES. You may shower on post op day # 1 We ask that you do not let the water soak the wound. If it does get wet, just towel dry lightly. Please do not scrub your incision or place any type of chemical/ointment on the wound. No tub baths, pools or jacuzzis for one month. If you have any leaking or redness from your wound, or fevers, please call office Print Language: Kazakh
[2025-07-03 15:13] VITALS: BP 124/71; PULSE 92; RESP 16; TEMP 36.2; O2SAT 98
[2025-07-03 15:15] VITALS: BP 125/73; PULSE 84; RESP 16; O2SAT 98
[2025-07-03 15:20] VITALS: BP 138/69; PULSE 81; RESP 16; O2SAT 99
[2025-07-03 15:25] VITALS: BP 143/75; PULSE 80; RESP 16; TEMP 36.2; O2SAT 99
== END 2025-07-03 16:20 | disposition home or self-care (01) ==
PROVIDERS: Nurse Practitioner; PCP Dentist General Practice; Visit Provider Neurological Surgery
PROC: (CPT 63047; principal; 2025-07-03 14:10)
DX: M48.061 Spinal stenosis, lumbar region without neurogenic claudication (principal); I10 Essential (primary) hypertension; R73.03 Prediabetes; G47.33 Obstructive sleep apnea (adult) (pediatric); Z79.1 Long term (current) use of non-steroidal anti-inflammatories (NSAID); Z79.82 Long term (current) use of aspirin; Z79.84 Long term (current) use of oral hypoglycemic drugs; Z79.899 Other long term (current) drug therapy
CPT/HCPCS: 63047; 63048; 36415; 82947; 85027; 93005; J0131; J0690; J1100; J1885; J2003; J2405; J2704; J3010

== ENCOUNTER → 2025-07-03 11:22 | Outpatient (BNV) | payer MEDICARE, MEDICAID, SELFPAY | PROVIDERS: PCP Dentist General Practice; Visit Provider Neurological Surgery | DX: M48.062 Spinal stenosis, lumbar region with neurogenic claudication (principal) | CPT/HCPCS: 63047; 63048; 99499 ==

== ENCOUNTER 2025-07-23 09:05 | Outpatient (AMB) | payer MEDICARE, MEDICAID, SELFPAY ==
--- NOTE | 2025-07-23 09:18 | A.SPINEOV_ITS ---
Intake Visit Reasons: 1st post op Intake Note: Mr. Oliver is here today for his 1st post op. 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 Christiansen on 07/03/25. He reports that overall since his surgery he is doing well. He does feel like the pain he had preoperatively has largely subsided, however does state that he was in quite a bit of pain over the course of the last few weeks until about 3 or 4 days ago. Primarily this was pain around the incision site in the occasional pain in his anterior thighs. He also reports a low-grade radiating pain into his right groin. In addition to this he reports some increased cold hyperalgesia which we discussed may be related to [facility] climate (winter months) or may be waxing / waning neurological symptoms. He reports no motor deficit associated with this. We discussed the postoperative healing course and I answered all questions that he had. No new neurological deficits. The patient ambulates well with the assistance of a cane. He rises from a seated position independently without needing to brace himself on a chair. His posterior incision site is closed and well healing with mild edema surrounding the incision. No drainage noted. I would like to follow up with Tereso again in 6 weeks for his 2nd postoperative visit. I will refill his pain medication to get him through the next week or so while his postoperative inflammation continues to recede. Joey Christiansen MD,PhD [facility] Medications: Changed From oxycodone Partial Fill upon patient request. 5 mg PO Q4H PRN 20 tabs 0RF pain To oxycodone Partial Fill upon patient request. 5 mg PO Q6-8H PRN 21 tabs 0RF pain Coding Level of Care Code Global (86813) Diagnoses Status post lumbar spine surgery for decompression of spinal cord Z98.890
--- OUTSIDE RECORDS SUMMARY | 2025-07-23 09:58 | XMS_ITS | Clinical Summary ---
Author Organization [facility] Address [address] [place] [id number] Phone Care Team Providers Care [employer]her [employer] Mica Name Role Phone Regina Medel NP Primary [...] Last Done Comments Colorectal Cancer Screening: Colonoscopy 1962 RSV Immunization Adult Patients (1 - Risk 50-74 years 1-dose series) 2012 Lung Cancer Screening (Low Dose CT) 09/09/2022 Medicare Annual Wellness Visit 09/09/2022 Social Influencers of Health Screening 09/09/2022 Depression Screening 09/27/2024 Influenza Vaccine (#1) 2025 [...] Insurance MEDICARE MEDICAID - [place] Care Teams [employer] Mica Relationship Specialty Start Date End Date Regina Medel NP [facility] [place] [address] PCP - General 07/21/22
== END 2025-07-23 09:42 | disposition home or self-care (01) ==
LOC: HO.HNS 09:05
PROVIDERS: PCP Dentist General Practice; Visit Provider Physician Assistant
DX: Z98.890 Other specified postprocedural states (principal)
CPT/HCPCS: 99024

== ENCOUNTER → 2025-07-23 09:05 | Outpatient (BNVA) | payer MEDICARE, MEDICAID, SELFPAY | PROVIDERS: PCP Dentist General Practice; Visit Provider Physician Assistant | DX: M54.50 Low back pain, unspecified (principal); Z98.890 Other specified postprocedural states | CPT/HCPCS: 99212 ==

== ENCOUNTER 2025-09-03 08:57 | Outpatient (AMB) | payer MEDICARE, MEDICAID, SELFPAY ==
--- NOTE | 2025-09-03 09:22 | HO.SPINEOV ---
Intake Visit Reasons: 2nd post op Intake Note: Mr. Oliver is here today for his 2nd post op. Low Vision Therapist Required: No Allergies No Known Allergies Allergy (Verified 07/23/25 09:19) Assessment & Plan Assessment & Plan (1) Status post lumbar spine surgery for decompression of spinal cord: Code(s): Z98.890 - Other specified postprocedural states Category: Surgical Plan Operation: L3-4, L4-5 Laminotomy, Partial facetectomy and foraminotomy Tereso is a pleasant 64 year old male who underwent L3-[address] Christiansen on 07/03/25. He comes in today for his 2nd postoperative visit. During his last office visit he reported that the pain he had preoperatively has largely subsided. Unfortunately about 3-4 weeks ago he began experiencing right hip pain shooting down the lateral aspect of his leg toward the knee. He does report that has a Hx of a tear in the muscle of his right hip. He is concerned that this new pain may be related to that. He denies any numbness / tingling, or burning associated with the pain. He reports that he has needed to utilize pain medication to help mitigate this since onset. No new neurological deficits. The patient ambulates well with no assistive devices (previously using a cane). He rises from a seated position independently without needing to brace himself on a chair. Gait is non-antalgic and non-spastic. I encouraged Tereso to follow up with his Orthopedics office to evaluate his right hip. Per his repot he has an MRI order already ordered for his right hip. I encouraged him to see what treatment options they have in mind after his MRI, and to see us in the future for follow up if his pain is not resolved after evaluation and treatment by orthopedics. This could be related to lumbar nerve compression but hip pathology should be ruled out first given his Hx. Joey Christiansen MD,PhD [facility] Coding Level of Care Code Global (34797) Diagnoses Status post lumbar spine surgery for decompression of spinal cord Z98.890
== END 2025-09-03 09:44 | disposition home or self-care (01) ==
LOC: HO.HNS 08:57
PROVIDERS: PCP Dentist General Practice; Visit Provider Physician Assistant
DX: Z98.890 Other specified postprocedural states (principal)
CPT/HCPCS: 99024

== ENCOUNTER → 2025-09-03 08:57 | Outpatient (BNVA) | payer MEDICARE, MEDICAID, SELFPAY | PROVIDERS: PCP Dentist General Practice; Visit Provider Physician Assistant | DX: Z98.890 Other specified postprocedural states (principal) | CPT/HCPCS: 99212 ==